=== PATIENT | male | born 1930 | race Caucasian/White ===

== ENCOUNTER 2017-10-27 11:12 | Inpatient (IN) | payer MEDICARE, OTHER ==
[2017-10-27 12:23] LABS: #Basophils 0.1 thou/uL (0.0-0.2); #Lymphocytes 1.4 thou/uL (1.20-3.40); #Monocytes 0.3 thou/uL (0.11-0.59); #Neutrophils 14.2 thou/uL (1.40-6.50); %Basophils 0.4 % (0.0-1.0); %Eosinophils 0.1 % (0.0-10.0); %Lymphocytes 8.7 % (21.0-51.0); %Monocytes 1.8 % (0.0-10.0); %Neutrophils 88.9 % (42.0-75.0); Hemoglobin 13.3 g/dL (14.0-18.0); Mean Corpuscular HGB CONC 30.9 g/dL (32.0-36.0); Mean Corpuscular Hemoglobin 30.2 pg (27.0-31.0); Mean Corpuscular Volume 97.6 fl (80.0-94.0); Mean Platelet Volume 7.3 fL (7.4-10.4); Platelet Count 337 thou/uL (130-400); RBC Distribution Width 14.3 % (11.5-14.5)
[2017-10-27 12:51] LABS: ALT (SGPT) 45 U/L (8-55); AST (SGOT) 26 U/L (5-34); Alkaline Phosphatase 67 U/L (40-150); Anion Gap 16 mmol/L (10-20); BUN (Urea Nitrogen) 21 mg/dL (8.4-25.7); Bilirubin, Total 0.6 mg/dL (0.2-1.2); CK (CPK) 86 U/L (30-200); Calc. Creatinine Clearance 0 mL/min (70-130); Calcium 8.9 mg/dL (7.8-10.44); Carbon Dioxide 25 mmol/L (23-31); Chloride 99 mmol/L (98-107); Estimated GFR-MDRD 61; Globulin 3.6 g/dL (2.4-3.5); Glucose 254 mg/dL (83-110); Lipase 32 U/L (8-78); Potassium 4.9 mmol/L (3.5-5.1); Protein, Total 6.6 g/dL (5.8-8.1); Sodium 135 mmol/L (136-145)
[2017-10-27 12:53] LABS: Troponin I 0.017 ng/mL (< 0.028)
--- NOTE | 2017-10-27 13:00 | CT ---
CT BRAIN WITHOUT CONTRAST: HISTORY: Emergency exam. Confusion. COMPARISON: None. FINDINGS: There is mild atrophy. Ex vacuo dilatation in extraaxial CSF spaces and the ventricles. No hemorrhage. No large-volume infarction. Calvarium is intact. Paranasal sinuses and mastoids are clear. IMPRESSION: Mild atrophy. No acute intracranial abnormality. POS: [facility]
--- NOTE | 2017-10-27 13:27 | RAD ---
PA AND LATERAL OF THE CHEST: INDICATION: History of cough. COMPARISON: Prior exam dated 08/28/16. FINDINGS: There is prominent airspace opacity seen within the region of the right middle lobe and right lower l obe with a small right pleural effusion. Findings in the appropriate clinical setting were consisten t with pneumonia with a peripneumonic effusion. Chronic lung changes appear similar to the compariso n exams. Post-CABG change is similar. Dual-lead pacemaker overlying the left chest wall is similar. No acute osseous abnormality is grossly evident. There is an aorto-endograft stent seen within the upper abdomen. IMPRESSION: Patchy opacities seen within the right lung base with associated right-sided pleural effusion suspici ous for pneumonia with peripneumonic effusion. Recommend radiographic followup to resolution. POS: [facility]
[2017-10-27 13:58] LABS: Bilirubin Negative (Negative); Blood, Urine Negative (Negative); Clarity CLEAR (Clear); Glucose, Urine (Dipstick) >=1000 mg/dL (Negative); Leukocyte Negative (Negative); Nitrite Negative (Negative); Protein, Urine (Dipstick) Negative (Neg-Trace); Specific Gravity, Urine 1.028 (1.002-1.036); Urobilinogen 0.2 mg/dL (0.2-1.0); pH, Urine 5.5 (5.0-9.0)
[2017-10-27] MEDS ORDERED: Azithromycin 500 MG in Sodium Chloride 0.9% 250 ML 250 ML IVPB SCH ×2 (14:00→18:30)
[2017-10-27] MEDS ORDERED: methylPREDNISolone Sod Succ/PF 125 MG/2 ML VIAL ONE (14:21)
[2017-10-27] MEDS ORDERED: Water For Inject, Bacteriostat 30 ML ONE (14:21)
[2017-10-27] MEDS ORDERED: Acetaminophen 325 MG TAB PO PRN ×2 (16:07→17:28)
[2017-10-27 16:13] VITALS: BMI 20.1
[2017-10-27 16:18] LABS: Troponin I 0.026 ng/mL (< 0.028)
[2017-10-27 16:19] LABS: Lactic Acid 1.3 mmol/L (0.5-2.2)
[2017-10-27] MEDS ORDERED: Dextrose 50% Abboject 50 ML SYRINGE SLOW IVP PRN (17:28)
[2017-10-27] MEDS ORDERED: Zolpidem Tartrate 5 MG TAB PO PRN (17:28)
[2017-10-27] MEDS ORDERED: Dextrose 5% in Water 1,000 ML IV PRN (17:28)
[2017-10-27 18:51] LABS: Troponin I 0.026 ng/mL (< 0.028)
[2017-10-27] MEDS: Albuterol Sulfate 2.5 mg/3 ml Neb NEB SCH ×2 (19:57→22:34)
[2017-10-27] MEDS ORDERED: cefTRIAXone\\ROCEPHIN 1 GM in Sodium Chloride 0.9% 100 ML IVPB SCH (20:00)
[2017-10-27] MEDS: Apixaban 5 MG TAB PO SCH (20:25)
[2017-10-27] MEDS: Atorvastatin Calcium 20 MG TAB PO SCH (20:25)
[2017-10-27] MEDS: Azelastine 137 MCG/Spray 30 ML NS SCH (20:25)
[2017-10-27] MEDS ORDERED: Non-Formulary Item 1 EACH (Levocetirizine Dihydrochloride [Levocetirizine Dihydrochloride PO SCH (21:00)
[2017-10-27] MEDS ORDERED: SITAGLIPTIN PHOS PO SCH (21:00)
[2017-10-27] MEDS ORDERED: METFORMIN HCL PO SCH (21:00)
--- NOTE | 2017-10-27 22:32 | HP ---
DATE OF ADMISSION: 10/27/2017 ADMITTING PHYSICIAN: Kyaw Pdero MD HISTORY OF PRESENT ILLNESS: The patient is an 87-year-old male with known history of atherosclerotic coronary artery disease, type 2 diabetes mellitus, history of atrial fibrillation, brought to the em ergency room. Family noticed slight confusion, being unable to find words, slurred speech, shaking t his morning. He seemed to be slightly weakened. Family noticed some tremors to his upper body. He was seen and evaluated in the emergency room and he was found to have a right lower lobe pneumonia wi th elevated white blood count. There have been no reports of fever, productive coughing, previous hi story of nausea, vomiting, or diarrhea. He has recently had a history of hematuria, has been evaluat ed by Urology Service: No etiology of his hematuria was identified. He has also recently had some c hanges to some of his medicines for cardiology treatments. Today right now, he is feeling much javi r since he has had received some IV fluids as well as some IV antibiotics. He has noted been feeling ill for about 5-6 weeks prior to this, has also noted some lower back pain. He states the back pain is now feeling much better as well too. Once again, no productive coughing, no fever has been repor harshad. Family did note, as they said, that he seemed to be a little bit more confused this morning. T hey now noted he seems to be back to his normal mental status at this time. Otherwise, no other medi fran complaints are noted. ALLERGIES: He is allergic to CODEINE, SULFA. CURRENT MEDICATION: Will be updated at a later date. PAST MEDICAL HISTORY: Significant for atherosclerotic coronary artery disease, status post coronary artery bypass graft on 2 separate occasions, most recently approximately 3 years ago in 2013. He is also status post pacemaker placement. Medical history positive for atrial fibrillation, type 2 diabe cass mellitus, hypertension, and benign prostatic hypertrophy. SOCIAL AND PERSONAL HISTORY: He is . He does not smoke nor does he drink alcohol. REVIEW OF SYSTEMS: Genitourinary: Positive for some urinary frequency. Musculoskeletal: Positive for back pain. Cardiovascular: Otherwise, negative. Pulmonary: Positive as above. Neurological: Otherwise negative. PHYSICAL EXAMINATION: VITAL SIGNS: Temperature 98.8, pulse 107 and regular, respirations 18, O2 sat 94% on 2 liters, blood pressure 136/68. GENERAL: He appears to be alert, active, in no distress. HEENT: Normocephalic, atraumatic. Extraocular muscles are intact. Sclerae and conjunctivae clear. NECK: Supple, no masses. LUNGS: Bilateral breath sounds; questions of some very faint rales at the right base. HEART: Reveals and irregular regular rhythm without murmur, gallops or rubs. ABDOMEN: Soft, nontender, bowel sounds are active. No hepatosplenomegaly is noted. EXTREMITIES: No clubbing, edema or cyanosis otherwise noted. NEUROLOGICAL: He is alert and oriented. He is able to move all extremities at this time. LABORATORY AND X-RAY FINDINGS: His white blood count 16,000, hemoglobin 13.3, hematocrit 42.9. Chem istry: Sodium 135, potassium 4.9, chloride 99, CO2 of 25, BUN 29, creatinine 1.13. Lactic acid is s lightly elevated upon admission of 2.4. Troponins x2 are negative. Urinalysis shows some glucose in his urine. Chest x-ray did reveal a faint right lower lobe infiltrate with effusion noted on the ri ght side. IMPRESSION: 1. This is an 87-year-old male with known history of atherosclerotic coronary artery disease who pre sented with altered mental status, most likely this is related to a pneumonic process. He does have a right pleural effusion, which could be associated with his back pain. 2. History of atherosclerotic coronary artery disease. 3. History of type 2 diabetes mellitus. PLAN: 1. The patient will be admitted and begun on IV antibiotics. 2. Sliding scale insulin will be administered. 3. We will consider pulmonary consult; see response in the a.m.
[2017-10-28] MEDS: Insulin Regular 300 UNITS/3 ML VIAL SC PRN ×4 (05:50→21:31)
[2017-10-28 05:55] LABS: Anion Gap 21 mmol/L (10-20); BUN (Urea Nitrogen) 23 mg/dL (8.4-25.7); Calc. Creatinine Clearance 49 mL/min (70-130); Calcium 8.8 mg/dL (7.8-10.44); Carbon Dioxide 22 mmol/L (23-31); Chloride 102 mmol/L (98-107); Estimated GFR-MDRD 65; Glucose 274 mg/dL (83-110); Potassium 4.5 mmol/L (3.5-5.1); Sodium 140 mmol/L (136-145)
[2017-10-28 06:01] LABS: Band 19 % (5-11); Lymphocytes 17 % (21-51); MDiff Complete? YES; Mean Corpuscular HGB CONC 31.8 g/dL (32.0-36.0); Mean Corpuscular Volume 97.5 fl (80.0-94.0); Mean Platelet Volume 7.7 fL (7.4-10.4); Monocytes 2 % (0-10); Neutrophil 62 % (42-75); Platelet Count 329 thou/uL (130-400); RBC Distribution Width 14.4 % (11.5-14.5); Red Blood Cell (RBC) Count 4.19 mill/uL (4.70-6.10); White Blood Cell (WBC) Count 21.3 thou/uL (4.8-10.8)
--- NOTE | 2017-10-28 07:34 | PRG ---
DATE OF SERVICE: 10/28/2017 SUBJECTIVE: Mr. Fernández states he is feeling well. He still noticed some mid back pain, some slight pain with breathing, but overall states he is feeling better. OBJECTIVE: VITAL SIGNS: His temperature 97.5, BP 125/70, and O2 sats 97% on 2-3 liters. LUNGS: Reveal decreased breath sounds right base. No wheezes or rales, otherwise appreciated. HEART: Reveals an irregular regular rhythm without murmurs. LABORATORY DATA: His white blood count is elevated at 21.3, hemoglobin 13.0, hematocrit 40.8. Chemi stry profile is essentially normal otherwise. IMPRESSION: Right lower lobe pneumonia. Continues to be improved clinically. PLAN: The patient will continue current antibiotic regimen, we will make sure nursing staff could se e him up and moves around today.
[2017-10-28] MEDS ORDERED: metFORMIN 500 MG TAB PO SCH ×3 (08:00)
[2017-10-28] MEDS ORDERED: Canagliflozin [Invokana] 1 TAB PO SCH (09:00)
[2017-10-28] MEDS: metFORMIN 500 MG TAB PO SCH ×3 (09:46→16:54)
[2017-10-28] MEDS: Apixaban 5 MG TAB PO SCH ×2 (09:47→21:27)
[2017-10-28] MEDS: Ezetimibe 10 MG TAB PO SCH (09:47)
[2017-10-28] MEDS: Dutasteride 0.5 MG CAP PO SCH (09:47)
[2017-10-28] MEDS: Loratadine 10 MG TAB PO SCH (09:48)
[2017-10-28] MEDS: Allopurinol 300 MG TAB PO SCH (09:48)
[2017-10-28] MEDS: Azelastine 137 MCG/Spray 30 ML NS SCH ×2 (09:49→21:30)
[2017-10-28] MEDS: Alogliptin 6.25 MG TAB PO SCH (09:58)
[2017-10-28] MEDS: Azithromycin 500 MG in Sodium Chloride 0.9% 250 ML 250 ML IVPB SCH (11:45)
[2017-10-28] MEDS: cefTRIAXone\\ROCEPHIN 1 GM, Syringe 0.4 ML in Sterile Water 9.6 ML SLOW IVP SCH (14:30)
[2017-10-28] MEDS: Atorvastatin Calcium 20 MG TAB PO SCH (21:27)
[2017-10-29 06:47] LABS: Hemoglobin 12.2 g/dL (14.0-18.0); Mean Corpuscular HGB CONC 30.4 g/dL (32.0-36.0); Mean Corpuscular Hemoglobin 29.6 pg (27.0-31.0); Mean Corpuscular Volume 97.2 fl (80.0-94.0); Mean Platelet Volume 7.6 fL (7.4-10.4); Platelet Count 371 thou/uL (130-400); RBC Distribution Width 14.5 % (11.5-14.5); Red Blood Cell (RBC) Count 4.11 mill/uL (4.70-6.10); White Blood Cell (WBC) Count 22.1 thou/uL (4.8-10.8)
[2017-10-29] MEDS: metFORMIN 500 MG TAB PO SCH ×3 (08:42→17:52)
[2017-10-29] MEDS: Dutasteride 0.5 MG CAP PO SCH (08:42)
[2017-10-29] MEDS: Alogliptin 6.25 MG TAB PO SCH (08:43)
[2017-10-29] MEDS: Allopurinol 300 MG TAB PO SCH (08:43)
[2017-10-29] MEDS: Apixaban 5 MG TAB PO SCH ×2 (08:43→21:39)
[2017-10-29] MEDS: Ezetimibe 10 MG TAB PO SCH (08:43)
[2017-10-29] MEDS: Loratadine 10 MG TAB PO SCH (08:43)
[2017-10-29] MEDS: Azelastine 137 MCG/Spray 30 ML NS SCH ×2 (08:44→21:39)
--- NOTE | 2017-10-29 08:50 | RAD ---
PA AND LATERAL VIEWS OF CHEST: Date: 10/29/17 HISTORY: Pneumonia follow-up. FINDINGS/IMPRESSION: Comparison made with exam of 10/27/17. Changes of median sternotomy are again seen. Left-sided pacemaker device remains in place. The heart size is normal. Right basilar consolidation with accompanying effusion is again seen. No pneumothorac es are identified. The right-sided pleural effusion is slightly larger than on the previous study. POS: [facility]
[2017-10-29 08:57] LABS: Band 14 % (5-11); Lymphocytes 3 % (21-51); MDiff Complete? YES; Monocytes 6 % (0-10); Myelocyte 1 % (0-0); Neutrophil 76 % (42-75); RBC Morphology Normal
[2017-10-29] MEDS: Azithromycin 500 MG in Sodium Chloride 0.9% 250 ML 250 ML IVPB SCH (12:20)
--- NOTE | 2017-10-29 13:10 | PRG ---
DATE OF SERVICE: 10/29/2017 SUBJECTIVE: Mr. Fernández is resting comfortably in bed. He has no medical complaints except for some pain to his right lower and right mid back area, somewhat worse when he breath. PHYSICAL EXAMINATION: VITAL SIGNS: He is afebrile. Blood pressure 144/55, O2 sat 92% on 3 liters. LUNGS: Reveal bilateral breath sounds, somewhat diminished on the right foot, but no rales or wheeze s are appreciated. HEART: Reveals an irregular regular rhythm. ABDOMEN: Soft, nontender, bowel sounds are active. LABORATORY DATA: His white blood count is 22,000, hemoglobin 12.2, hematocrit 39.9. Microbiology sh ows a gram variable jeremiah with further incubation required. Chest x-ray shows a somewhat larger right pleural effusion when compared to previous x-ray. There is a right basilar consolidation noted, basi joe unchanged. IMPRESSION: 1. Right lower lobe pneumonia with effusion. 2. One blood culture positive. 3. History of atrial fibrillation with pacemaker, currently on Eliquis. PLAN: The patient seems to be improving clinically, although white count is somewhat higher and the effusions are somewhat larger. I will discuss the findings with Pulmonology, consult could be given and the patient has been notified of the above findings. The patient will be cared for this weekend by transportation coordinator physicians. His hospitalization and follow up will be determined by his response.
[2017-10-29] MEDS: cefTRIAXone\\ROCEPHIN 1 GM, Syringe 0.4 ML in Sterile Water 9.6 ML SLOW IVP SCH (14:53)
[2017-10-29] MEDS: Atorvastatin Calcium 20 MG TAB PO SCH (21:39)
[2017-10-30] MEDS: Insulin Regular 300 UNITS/3 ML VIAL SC PRN ×2 (06:17→18:35)
[2017-10-30 06:42] LABS: #Lymphocytes 1.5 thou/uL (1.20-3.40); #Monocytes 1.2 thou/uL (0.11-0.59); #Neutrophils 16.6 thou/uL (1.40-6.50); %Basophils 0.1 % (0.0-1.0); %Eosinophils 0.2 % (0.0-10.0); %Lymphocytes 7.9 % (21.0-51.0); %Monocytes 6.3 % (0.0-10.0); %Neutrophils 85.5 % (42.0-75.0); Mean Corpuscular Hemoglobin 29.8 pg (27.0-31.0); Mean Corpuscular Volume 96.3 fl (80.0-94.0); Mean Platelet Volume 7.7 fL (7.4-10.4); Platelet Count 335 thou/uL (130-400); RBC Distribution Width 14.4 % (11.5-14.5); Red Blood Cell (RBC) Count 4.01 mill/uL (4.70-6.10); White Blood Cell (WBC) Count 19.5 thou/uL (4.8-10.8)
[2017-10-30] MEDS: Alogliptin 6.25 MG TAB PO SCH (09:16)
[2017-10-30] MEDS: Allopurinol 300 MG TAB PO SCH (09:17)
[2017-10-30] MEDS: Apixaban 5 MG TAB PO SCH ×2 (09:17→21:11)
[2017-10-30] MEDS: metFORMIN 500 MG TAB PO SCH ×3 (09:17→18:34)
[2017-10-30] MEDS: Ezetimibe 10 MG TAB PO SCH (09:17)
[2017-10-30] MEDS: Dutasteride 0.5 MG CAP PO SCH (09:18)
[2017-10-30] MEDS: predniSONE 20 MG TAB PO SCH (09:18)
[2017-10-30] MEDS: Loratadine 10 MG TAB PO SCH (09:18)
[2017-10-30] MEDS: Azelastine 137 MCG/Spray 30 ML NS SCH ×2 (09:18→21:12)
[2017-10-30] MEDS ORDERED: Insulin Regular 300 UNITS/3 ML VIAL SC PRN (11:05)
--- NOTE | 2017-10-30 11:31 | PRG ---
DATE OF SERVICE: 10/30/2017 PRIMARY CARE PHYSICIAN: Dr. Kyaw Pedro. SUBJECTIVE: The patient is feeling some better. He continues to have right-sided lower chest wall p ain, worse with inspiration and changes of position, improved cough, improved shortness of breath. H e is ambulating in the hallway and sitting up in chair without difficulty. Still requiring oxygen. OBJECTIVE: VITAL SIGNS: Temperature 98.4, pulse of 98, respirations 16, blood pressure 112/61, pulse ox is 95% on 3 liters, 85% on room air. GENERAL: He is awake and alert, in no acute distress. Speech is clear. No conversational dyspnea. NECK: Supple. CARDIOVASCULAR: Irregularly irregular. LUNGS: With decreased breath sounds in the right base. No wheeze, rales, or rhonchi. ABDOMEN: Soft. EXTREMITIES: With no edema. LABORATORY DATA: White blood cell count down to 19,500 with 85.5% neutrophils, 7.9% lymphocytes, no bandemia. This is down from 22,100 white blood cells yesterday, hemoglobin and hematocrit 12.0 and 3 8.6, platelets of 335. Accu-Cheks of 229, 206, 176, 194. Blood culture 1 of 2 is still growing gram -variable rods. Chest x-ray from yesterday reveals increased pleural effusion on the right. ASSESSMENT AND PLAN: This is an 87-year-old gentleman with a history of coronary artery disease, chr onic atrial fibrillation, admitted with right lower lobe pneumonia with effusion and now with increas ed effusion. He was started on steroids today per Pulmonary and has had minimal improvement since . 1. Pneumonia. We will continue antibiotics. 2. White blood cell count is starting to decline. 3. Increased pleural effusion. We will recheck chest x-ray in the morning and have Pulmonary evalua te the patient. 3. Hypoxemia. I will make arrangements for home oxygen. 4. Chronic atrial fibrillation. We will continue anticoagulation.
[2017-10-30] MEDS: Azithromycin 500 MG in Sodium Chloride 0.9% 250 ML 250 ML IVPB SCH (12:03)
[2017-10-30] MEDS: cefTRIAXone\\ROCEPHIN 1 GM, Syringe 0.4 ML in Sterile Water 9.6 ML SLOW IVP SCH (15:30)
[2017-10-30] MEDS: Atorvastatin Calcium 20 MG TAB PO SCH (21:11)
[2017-10-31 05:16] LABS: #Lymphocytes 1.1 thou/uL (1.20-3.40); #Monocytes 1.4 thou/uL (0.11-0.59); #Neutrophils 17.3 thou/uL (1.40-6.50); %Basophils 0.1 % (0.0-1.0); %Eosinophils 0.2 % (0.0-10.0); %Lymphocytes 5.5 % (21.0-51.0); %Monocytes 6.8 % (0.0-10.0); %Neutrophils 87.4 % (42.0-75.0); Hemoglobin 13.1 g/dL (14.0-18.0); Mean Corpuscular HGB CONC 31.9 g/dL (32.0-36.0); Mean Corpuscular Hemoglobin 31.1 pg (27.0-31.0); Mean Corpuscular Volume 97.5 fl (80.0-94.0); Mean Platelet Volume 7.9 fL (7.4-10.4); Platelet Count 356 thou/uL (130-400); RBC Distribution Width 14.4 % (11.5-14.5); Red Blood Cell (RBC) Count 4.21 mill/uL (4.70-6.10); White Blood Cell (WBC) Count 19.8 thou/uL (4.8-10.8)
[2017-10-31] MEDS: Insulin Regular 300 UNITS/3 ML VIAL SC PRN ×2 (07:04→19:15)
[2017-10-31] MEDS: metFORMIN 500 MG TAB PO SCH ×2 (08:41→17:35)
[2017-10-31] MEDS: Allopurinol 300 MG TAB PO SCH (08:41)
[2017-10-31] MEDS: predniSONE 20 MG TAB PO SCH (08:41)
[2017-10-31] MEDS: Ezetimibe 10 MG TAB PO SCH (08:41)
[2017-10-31] MEDS: Alogliptin 6.25 MG TAB PO SCH (08:41)
[2017-10-31] MEDS: Dutasteride 0.5 MG CAP PO SCH (08:41)
[2017-10-31] MEDS: Apixaban 5 MG TAB PO SCH (08:41)
[2017-10-31] MEDS: Azelastine 137 MCG/Spray 30 ML NS SCH ×2 (08:42→20:18)
[2017-10-31] MEDS: Loratadine 10 MG TAB PO SCH (08:42)
--- NOTE | 2017-10-31 09:56 | PRG ---
DATE OF SERVICE: 10/31/2017 SUBJECTIVE: The patient states that he is feeling better. He has decreased pain in his right chest with inspiration. He states that he is moving around in the room, able to go to the bathroom with his walker. Nursing reports that his pulse ox is worsened. He drops down to 70%-80% with ambulation, still requiring oxygen. OBJECTIVE: VITAL SIGNS: Temperature 98.9, pulse of 96, respirations 14-16, pulse oximetry is 95% on 3 liters, blood pressure 135/77. GENERAL: He is awake and alert. He has some conversational dyspnea, reported dyspnea on exertion. HEENT: Mucosa is moist. NECK: Supple. HEART: Regular rate and rhythm. LUNGS: With decreased breath sounds on the right side. No wheezes. ABDOMEN: Soft. EXTREMITIES: With no edema. LABORATORY DATA: White blood cell count 19,800, yesterday was 19,500, hemoglobin and hematocrit 13.1 and 41.1, platelets of 356. Accu-Cheks 224, 277 , 233. Chest x-ray, awaiting final report, but appears to have worsening infiltrate on the right side. ASSESSMENT AND PLAN: This is an 87-year-old gentleman admitted with pneumonia and persistent right pleural effusion, now with worsening symptoms, hypoxemia. 1. Right-sided pneumonia, possible aspiration component. We will continue Rocephin and start vancomycin. We will discontinue Zithromax. Await further recommendations per pulmonary. 2. Leukocytosis. Again, we will change antibiotics as above. 3. Increased pleural effusion. Dr. Campuzano to evaluate. 4. Chronic atrial fibrillation. We will continue anticoagulation. 5. Type 2 diabetes, worsened likely due to the steroid therapy. I will start Lantus for basal insulin while he is taking steroid therapy. MTDD
[2017-10-31] MEDS ORDERED: Insulin Detemir 100 UNITS/ML 10 UNITS in Pre-Filled Syringe 1 EACH SC SCH (10:15)
--- NOTE | 2017-10-31 10:48 | RAD ---
AP VIEW CHEST: Date: 10/31/17 HISTORY: pleural effusion. FINDINGS: Comparison made to previous exam from 10/29/17. Two AP views of chest demonstrate sternotomy wires seen. A dual lead intracardiac pacing device is se en. There is a moderate to large right-sided pleural effusion, which is stable. Some prominent inters titial markings seen in the right lung, as well as in the left lung base. No significant interval odalis nge is seen since the previous exam from 2 days earlier. IMPRESSION: Moderate to large right-sided pleural effusion. POS: [facility]
[2017-10-31] MEDS ORDERED: Vancomycin HCl 1 GM in Premix Bag 1 BAG IVPB SCH (11:00)
--- NOTE | 2017-10-31 14:51 | RAD ---
AP VIEW CHEST: Date: 10/31/17 HISTORY: Status post thoracentesis. FINDINGS: Comparison made to previous exam from earlier in the day. AP view of chest demonstrates sternotomy wires seen. The left lung is well aerated. There has been in terval right-sided thoracentesis. The volume of the right thoracic fluid collection has decreased com pared to the previous exam. No evidence of post thoracentesis pneumothorax seen. IMPRESSION: Status post right-sided thoracentesis. Some fluid remains in the right hemithorax. No evidence of pos tprocedure pneumothorax seen. POS: [facility]
[2017-10-31] MEDS: cefTRIAXone\\ROCEPHIN 1 GM, Syringe 0.4 ML in Sterile Water 9.6 ML SLOW IVP SCH (14:58)
[2017-10-31 16:27] LABS: BF Color Red; Body Fluid Source PLEURAL FLUID; Clarity Cloudy/Turbid (Clear); RBC Count-Automated 118000 /cumm; Tube # EDTA; WBC/NonHematic-Auto 12800 /cumm
[2017-10-31 16:41] LABS: Pleural Fluid, Protein 3.8 g/dL
[2017-10-31 17:03] LABS: BF Segmented Neutrophils 71 %; Cell Count Non Hematic 22 %; Lymphocytes 7 %
[2017-10-31] MEDS: Atorvastatin Calcium 20 MG TAB PO SCH (20:18)
--- NOTE | 2017-10-31 22:02 | CON ---
DATE OF CONSULTATION: 10/31/2017 REASON FOR CONSULTATION: Evaluation for right tube thoracostomy. PERTINENT HISTORY: Patient is an 87-year-old male admitted 5 days ago with generalized weakness and mental status changes. White blood cell count was elevated at 16.0 with chest x-ray suggestive of a right-sided pneumonia and associated small right pleural effusion. Symptomatic improvement has been seen with intravenous fluids and intravenous antibiotics. White blood cell count peaked at 22.1. Serial chest x-rays, however, had shown marked increase in the right pleural effusion. Thoracentesis was performed today by Dr. Campuzano retrieving approximately 1 liter of bloody fluid, which was also turbid and had a low pH. Post-thoracentesis chest x-ray revealed moderate remaining pleural fluid. The patient was subsequently referred for right tube thoracostomy. PAST MEDICAL HISTORY: 1. Coronary artery disease. 2. Infrarenal abdominal aortic aneurysm. 3. Dyslipidemia. 4. Hypertension. 5. Diabetes. 6. Benign prostatic hypertrophy. 7. Chronic atrial fibrillation on Eliquis. PAST SURGICAL HISTORY: 1. Appendectomy. 2. Permanent pacemaker insertion. 3. Coronary artery bypass grafting x4 in 2013. 4. Endovascular repair of infrarenal abdominal aortic aneurysm 2015. ALLERGIES: CODEINE, SULFA. SOCIAL HISTORY: Non-smoker. Occasional alcohol use. FAMILY HISTORY: Significant for his father undergone coronary artery bypass in his 90s. REVIEW OF SYSTEMS: No history of stroke or claudication. He has had evidence of prior renal insufficiency in the past; however, current creatinine is 1.07. LABORATORY DATA AND X-RAY FINDINGS: Current white blood cell count 19.8, hemoglobin 13.1, platelet count 356,000. CURRENT MEDICATIONS: Allopurinol, alogliptin, Lipitor, azelastine, IV ceftriaxone, Avodart, Zetia, detemir insulin, loratadine, metformin, Altace, prednisone, intravenous vancomycin. Eliquis was stopped today. PHYSICAL EXAMINATION: VITAL SIGNS: Height 6 feet 0 inches. Weight 161 pounds, blood pressure 133/77 , heart rate 96, temperature 98.9. GENERAL: Elderly, somewhat thin male, currently in no acute distress. He is fully oriented. He is wearing supplemental oxygen. HEENT: Grossly unremarkable. NECK: Without JVD or adenopathy. LUNGS: With diminished breath sounds on the right. HEART: Irregularly irregular rhythm consistent with his chronic atrial fibrillation. No murmur. ABDOMEN: Soft and nontender without palpable mass. EXTREMITIES: Without edema. VASCULAR: Palpable radial, femoral, and popliteal pulses bilaterally. No carotid bruits were appreciated. NEUROLOGIC: No focal deficits. IMPRESSION: Right parapneumonic effusion. RECOMMENDATIONS: Right tube thoracostomy (chest tube) to which the patient is in agreement following discussion with his referring lamp shade assembler and myself. Indications, benefits, alternatives, and risks were explained in detail to the patient. All questions were answered. The case will be scheduled in the OR on Wednesday using light sedation. YONAS
--- NOTE | 2017-11-01 03:13 | OP ---
DATE OF PROCEDURE: 10/31/2017 PROCEDURE: Thoracentesis. PROJECT MANAGER INDUSTRIAL: Olaf Campuzano M.D. INDICATION: Increasing pleural effusion on the right. PROCEDURE IN DETAIL: The patient was prepped in a sterile fashion using chlorhexidine. His right po sterior hemithorax was anesthetized with 1% lidocaine, approximately 8 mL. Pleural fluid was localiz ed with a 22 gauge needle. An 8 Slovak catheter was inserted in the pleural space after a small inci rohan with a #11 blade. Approximately 1 liter of serosanguineous pleural fluid was evacuated into a Pleur-Evac. No air was a spirated. There was no clinical indication of a pneumothorax. PH was 7.18. Protein was 3.8. LDH was 1237. Glucose was 203. There were 118,000 red cells, 16629 white cells, most of which were neutrophils (7 1%). IMPRESSION: Parapneumonic effusion with an LDH over 1000 and a pH of less than 7.2, this would argue for a chest tube placement. It is currently free flowing fluid. He is anticoagulated. I have stopped his anticoagulants. It is reasonable to do a swallow evaluation per Speech Pathology. Initially I canceled it, thought he john paul ht be having a chest tube placed tomorrow, but anticoagulants will be held for at least 24 hours and then perhaps on Wednesday he will have a chest tube placed.
[2017-11-01 05:45] LABS: Anion Gap 11 mmol/L (10-20); BUN (Urea Nitrogen) 38 mg/dL (8.4-25.7); Calc. Creatinine Clearance 55 mL/min (70-130); Calcium 8.5 mg/dL (7.8-10.44); Carbon Dioxide 28 mmol/L (23-31); Chloride 99 mmol/L (98-107); Estimated GFR-MDRD 74; Glucose 201 mg/dL (83-110); Potassium 4.4 mmol/L (3.5-5.1); Sodium 134 mmol/L (136-145)
[2017-11-01 07:02] LABS: Band 10 % (5-11); Hemoglobin 11.4 g/dL (14.0-18.0); Lymphocytes 7 % (21-51); MDiff Complete? YES; Mean Corpuscular HGB CONC 30.5 g/dL (32.0-36.0); Mean Corpuscular Hemoglobin 29.4 pg (27.0-31.0); Mean Corpuscular Volume 96.4 fl (80.0-94.0); Mean Platelet Volume 7.9 fL (7.4-10.4); Monocytes 4 % (0-10); Neutrophil 79 % (42-75); Platelet Count 347 thou/uL (130-400); RBC Distribution Width 14.2 % (11.5-14.5); Red Blood Cell (RBC) Count 3.87 mill/uL (4.70-6.10); White Blood Cell (WBC) Count 16.4 thou/uL (4.8-10.8)
[2017-11-01] MEDS: Alogliptin 6.25 MG TAB PO SCH (07:47)
[2017-11-01] MEDS: Allopurinol 300 MG TAB PO SCH (07:47)
[2017-11-01] MEDS: metFORMIN 500 MG TAB PO SCH ×2 (07:47→17:09)
[2017-11-01] MEDS: Ezetimibe 10 MG TAB PO SCH (07:47)
[2017-11-01] MEDS: Loratadine 10 MG TAB PO SCH (07:48)
[2017-11-01] MEDS: Dutasteride 0.5 MG CAP PO SCH (07:48)
[2017-11-01] MEDS: predniSONE 20 MG TAB PO SCH (07:48)
[2017-11-01] MEDS: Azelastine 137 MCG/Spray 30 ML NS SCH ×2 (07:49→21:23)
[2017-11-01] MEDS ORDERED: Insulin Detemir 100 UNITS/ML 10 UNITS in Pre-Filled Syringe 1 EACH SC SCH (09:00)
--- NOTE | 2017-11-01 10:41 | CON ---
DATE OF DICTATION: 10/31/2017 HISTORY OF PRESENT ILLNESS: Mr. Fernández is a pleasant 87-year-old male. 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 History of vascular disease. He says he recently had a heart checkup with Dr. Ignacio and zorathisruthi danilo was fine. He presented with some confusion and shortness of breath as well as a cough. Clinically, he has improved dramatically per his and his daughter, but his chest radiograph show ed progressively increasing pleural effusions, so I was consulted. PAST MEDICAL HISTORY: Remarkable for; 1. Atherosclerotic vascular disease. 2. Coronary bypass grafting. 3. History of pacemaker. 4. History of atrial fibrillation. 5. Diabetes. 6. Hypertension. 7. BPH. SOCIAL HISTORY: He is a non-smoker, nondrinker. He does not use drugs. He is , has a very s upportive family, now with and 1 daughter. Answered all their questions. REVIEW OF SYSTEMS: Ten point review of systems otherwise negative except for the above. Stated he f elt great yesterday and slept great last night, but this morning when he got up, he started feeling p oorly and he started getting short of breath moving around the room. PHYSICAL EXAMINATION: VITAL SIGNS: He is afebrile, heart rate is 97, respiratory rate 16, oximetry is 96 on 3 liters, bloo d pressure 135/77. HEENT: Pupils were equal. Sclerae is anicteric. Extraocular movements full. NECK: Supple. He has no cervical lymphadenopathy. LUNGS: Remarkable for decreased breath sounds at his right base and dullness residential up. HEART: Regular rhythm, no S3. There is grade 2/6 systolic murmur. ABDOMEN: Soft and nontender. EXTREMITIES: Without clubbing, cyanosis, or edema. LABORATORY DATA: White count 19.8, hemoglobin 13.1, platelets 356. Sodium 135, potassium 4.9, chloride 99, bicarbonate 25, BUN 21, creatinine 1.13, glucose 254. CHEST RADIOGRAPHS: On 10/27/2017, 10/29/2017, and this morning have been reviewed. There is gradual ly increasing right effusion. IMPRESSION: Probable parapneumonic effusion. Given that he has had a recent "good heart checkup", I doubt there has been significant decline in his left ventricular systolic function. I recommended a thoracentesis. Risks of bleeding, infection, lung collapse were explained to the pat ient. He agreed to proceed. This is 70-minute consultation including a greater than 50% of this time was spent reviewing records, coordinating care with the staff, and meeting with family and answering all their questions.
--- NOTE | 2017-11-01 10:59 | RAD ---
AP VIEW CHEST: Date: 11/01/17 HISTORY: Pleural effusion. FINDINGS: Comparison made to previous exam from 10/31/17. AP view of chest demonstrates sternotomy wires. Intracardiac pacing device is seen. There continues t o be a right-sided pleural effusion, unchanged since the previous exam. No evidence of pneumothorax s een. The left lung is well aerated. IMPRESSION: Persistent right-sided pleural effusion, unchanged since the previous exam. No evidence of right-side d pneumothorax seen. POS: [facility]
--- NOTE | 2017-11-01 11:54 | RAD ---
BARIUM SWALLOW: Date: 11/01/17 HISTORY: Pneumonia. Swallowing difficulties. 87-year-old male. RADIATION DOSIMETRY: 3.2 minutes of fluoroscopy. DAP 1.69 Gy*cm^2. TECHNIQUE: Varying consistencies of barium were given to the patient. The patient had persistent vallecular pool ing with all consistencies. FINDINGS: There is minimal sound aspiration with dribbling of the pooled barium from the vallecula past the epi glottis into the airway. No evidence of obvious aspiration seen during the swallowing maneuvers. IMPRESSION: Persistent vallecular pooling with minimal spillage and aspiration. POS: [facility]
[2017-11-01] MEDS ORDERED: Clopidogrel Bisulfate 75 MG TAB ONE (15:12)
--- NOTE | 2017-11-01 15:59 | PRG ---
DATE OF SERVICE: 11/01/2017 SUBJECTIVE: He is sitting up in a chair. He is in no distress. PHYSICAL EXAMINATION: VITAL SIGNS: Temperature 97.4, pulse 102, respirations 16, blood pressure 115/55. HEENT: Unremarkable. NECK: No JVD. CHEST: Clear except in the right base where he has diminished breath sounds. CARDIAC: S1 and S2 regular. ABDOMEN: Soft. EXTREMITIES: No edema. LABORATORY DATA: White blood cell count 16, hematocrit 37.4, platelet count 347. Sodium 134, potass ium 4.4, chloride 99, CO2 28, BUN 38, creatinine 0.9, glucose 201. ASSESSMENT: 1. Pneumonia. 2. Right-sided parapneumonic pleural effusion. PLAN: Chest tube placement tomorrow. Continue antibiotics.
[2017-11-01] MEDS: cefTRIAXone\\ROCEPHIN 1 GM, Syringe 0.4 ML in Sterile Water 9.6 ML SLOW IVP SCH (16:12)
[2017-11-01] MEDS: Atorvastatin Calcium 20 MG TAB PO SCH (21:22)
[2017-11-02 06:06] LABS: #Eosinphils 0.1 thou/uL (0.0-0.7); #Lymphocytes 1.2 thou/uL (1.20-3.40); #Neutrophils 12.8 thou/uL (1.40-6.50); %Basophils 0.1 % (0.0-1.0); %Eosinophils 0.5 % (0.0-10.0); %Lymphocytes 7.7 % (21.0-51.0); %Monocytes 6.5 % (0.0-10.0); %Neutrophils 85.2 % (42.0-75.0); Hemoglobin 11.9 g/dL (14.0-18.0); Mean Corpuscular HGB CONC 31.3 g/dL (32.0-36.0); Mean Corpuscular Hemoglobin 30.4 pg (27.0-31.0); Mean Corpuscular Volume 97.3 fl (80.0-94.0); Mean Platelet Volume 7.8 fL (7.4-10.4); Platelet Count 354 thou/uL (130-400); RBC Distribution Width 14.4 % (11.5-14.5)
[2017-11-02 06:25] LABS: Anion Gap 11 mmol/L (10-20); BUN (Urea Nitrogen) 30 mg/dL (8.4-25.7); Calc. Creatinine Clearance 62 mL/min (70-130); Calcium 8.9 mg/dL (7.8-10.44); Carbon Dioxide 30 mmol/L (23-31); Chloride 97 mmol/L (98-107); Estimated GFR-MDRD 85; Glucose 188 mg/dL (83-110); Potassium 4.2 mmol/L (3.5-5.1); Sodium 134 mmol/L (136-145)
[2017-11-02] MEDS ORDERED: Lidocaine 1% (PF) 30 ML VIAL ONE (08:36)
[2017-11-02] MEDS ORDERED: Fentanyl 100 MCG/2 ML VIAL ONE ×2 (10:33→11:39)
[2017-11-02] MEDS ORDERED: Promethazine HCl 25 MG/ML VIAL SLOW IVP PRN (10:51)
[2017-11-02] MEDS ORDERED: Promethazine HCl 25 MG/ML VIAL IM PRN (10:51)
[2017-11-02] MEDS ORDERED: Ondansetron HCl/PF 4 MG/2 ML Vial IVP PRN (10:51)
[2017-11-02] MEDS: predniSONE 20 MG TAB PO SCH (11:26)
[2017-11-02] MEDS: metFORMIN 500 MG TAB PO SCH ×2 (11:26→17:49)
[2017-11-02] MEDS: Alogliptin 6.25 MG TAB PO SCH (11:27)
[2017-11-02] MEDS: Ezetimibe 10 MG TAB PO SCH (11:27)
[2017-11-02] MEDS: Dutasteride 0.5 MG CAP PO SCH (11:27)
[2017-11-02] MEDS: Allopurinol 300 MG TAB PO SCH (11:27)
[2017-11-02] MEDS: Azelastine 137 MCG/Spray 30 ML NS SCH ×2 (11:27→21:17)
[2017-11-02] MEDS: Loratadine 10 MG TAB PO SCH (11:28)
[2017-11-02] MEDS: Insulin Detemir 100 UNITS/ML 15 UNITS in Pre-Filled Syringe 1 EACH SC SCH (11:28)
--- NOTE | 2017-11-02 11:33 | RAD ---
PORTABLE CHEST 1 VIEW: Date: 11/02/17 Time: 1107 hours HISTORY: Chest tube placement. Pleural effusion. FINDINGS/IMPRESSION: Comparison made with exam from previous day. A right-sided chest tube has been placed with tip in the projection of the right lung apex. There has been interval improvement in the size of the pleural effusion. A residual opacity is seen in the rig ht lower lobe. No definite pneumothorax is seen. Changes of median sternotomy are again noted. The he art size is stable. Left-sided pacemaker device remains in place. The left lung is clear. POS: [facility]
--- NOTE | 2017-11-02 12:12 | OP ---
DATE OF PROCEDURE: 11/02/2017 PREPROCEDURE DIAGNOSIS: Right parapneumonic effusion. SURGEON: Hema Toribio M.D. CLOTH PIECER: None. OPERATIVE DIAGNOSIS: Right parapneumonic effusion. SPONGE AND NEEDLE COUNTS: Correct. ANESTHESIA: IV sedation and local at tube insertion site. FINDINGS AT OPERATION: Approximately 600 mL of serosanguineous fluid. DESCRIPTION OF OPERATION: The patient was taken to the operating room. Intravenous sedation was achieved. The patient was prepped and draped in usual sterile fashion. At the proposed tube insertion site, local anesthesia was achieved with 1% Xylocaine. A small stab wound was made. Pleural cavity was entered without difficulty. A 36 Swedish straight chest tube was positioned to the apex as confirmed on intraoperative chest x-ray. Tube was connected to pleurovac suction. This did retrieve approximately 600 mL of serosanguineous fluid. Tube was secured to the skin with silk sutures. Dressing was applied. The patient was taken to the recovery room in stable condition. BLOOD LOSS: None. MTDD
[2017-11-02] MEDS ORDERED: HYDROcodone/Acetaminophen 5/325 mg Tablet PO PRN (12:52)
[2017-11-02] MEDS ORDERED: traMADol HCl 50 MG TAB PO PRN ×2 (12:53)
[2017-11-02] MEDS ORDERED: Ketorolac Tromethamine 30 MG/ML VIAL IVP PRN (12:54)
[2017-11-02] MEDS: cefTRIAXone\\ROCEPHIN 1 GM, Syringe 0.4 ML in Sterile Water 9.6 ML SLOW IVP SCH (14:05)
[2017-11-02] MEDS: HYDROcodone/Acetaminophen 5/325 mg Tablet PO PRN ×2 (15:43→21:18)
--- NOTE | 2017-11-02 16:34 | PQF ---
CLINICAL DOCUMENTATION IMPROVEMENT CLARIFICATION FORM: ICD-10 Updated PLEASE DO AN ADDENDUM TO THE PROGRESS NOTE WITH ANY DOCUMENTATION UPDATES OR ADDITIONS AND CARRY THROUGH TO DC SUMMARY. THANK YOU. DATE: 11/02/17 ATTN: Dr. Zacarias Caceres Please exercise your independent, professional judgment in responding to the clarification form. Clinical indicators are provided on the bottom of this form for your review Please check appropriate box(s): [ ] Acute Respiratory Failure: [ ] with Hypoxia [ ] with Hypercapnia [ ] Acute On Chronic Respiratory Failure: [ ] with Hypoxia [ ] with Hypercapnia [ ] Acute Respiratory Failure due to: (etiology) [ ] Chronic Respiratory Failure only [ ] with Hypoxia [ ] with Hypercapnia [ ] Other diagnosis [ ] Unable to determine In addition, please specify: Present on Admission (POA): [ ] Yes [ ] No [ ] Unable to determine For continuity of documentation, please document condition throughout progress notes and discharge summary. Thank You. CLINICAL INDICATORS - SIGNS / SYMPTOMS / LABS ER RECORD: BP 153/63, P 93, TEMP. 99.4, RESP. 24, O2 SAT 94 ON 2L OXYGEN H&P: WBC 16 LACTIC ACID 2.4 PRESENTED W/ ALTERED MENTAL STATUS, MOST LIKELY R/T A PNEUMONIC PROCESS. PN 10/29: O2 SAT 92 % ON 3L R LL PNEUMONIA W/ EFFUSION PULMONOLOGY PN 10/30: PULSE OX IS 95% ON 3 LITERS. 85% ON RA HYPOXEMIA. I WILL MAKE ARRANGEMENTS FOR HOME OXYGEN. RISKS: H&P: R PLEURAL EFFUSION PN 10/30: PNEUMONIA; INCREASED PLEURAL EFFUSION. HYPOXEMIA. TREATMENT: CPOE 10/27: DUONEB Q6 HR ORDER 10/27: ROCEPHIN 1 GM Thank you, Talya (This form is maintained as a part of the permanent medical record) 2015 [employer]. All Rights Reserved Talya Joshi RN, BSN [email or web address] Office: [phone] [facility]
--- NOTE | 2017-11-02 16:55 | PRG ---
DATE OF SERVICE: 11/02/2017 SUBJECTIVE: An 87-year-old gentleman status post right pleural drainage of 400 mL of serosanguineous fluid. X-ray still shows a persistent right lower lobe density, awaiting cultures and cytology. He is having some pain but no shortness of breath. PHYSICAL EXAMINATION: VITAL SIGNS: Pulse is 90, blood pressure 140/80, respirations 20, sats 95%. CHEST: Decreased breath sounds, no wheezing. HEART: Normal, S1, S2, no gallops. ABDOMEN: Soft, no masses. IMPRESSION: Right pleural effusion, parapneumonic, status post CT drainage. PLAN: Await culture, cytology. Continue antibiotics, supportive care. We will follow.
[2017-11-02] MEDS ORDERED: Propofol 200 MG/20 ML VIAL ONE (17:26)
[2017-11-02] MEDS: Atorvastatin Calcium 20 MG TAB PO SCH (21:21)
[2017-11-03] MEDS: Insulin Regular 300 UNITS/3 ML VIAL SC PRN ×2 (04:47→17:39)
[2017-11-03] MEDS: HYDROcodone/Acetaminophen 5/325 mg Tablet PO PRN ×3 (05:23→21:35)
[2017-11-03] MEDS: metFORMIN 500 MG TAB PO SCH ×2 (08:47→17:38)
[2017-11-03] MEDS: predniSONE 20 MG TAB PO SCH (08:51)
[2017-11-03] MEDS: Loratadine 10 MG TAB PO SCH (08:51)
[2017-11-03] MEDS: Alogliptin 6.25 MG TAB PO SCH (08:51)
[2017-11-03] MEDS: Ezetimibe 10 MG TAB PO SCH (08:53)
[2017-11-03] MEDS: Allopurinol 300 MG TAB PO SCH (08:53)
[2017-11-03] MEDS: Azelastine 137 MCG/Spray 30 ML NS SCH ×2 (08:54→21:35)
[2017-11-03] MEDS: Dutasteride 0.5 MG CAP PO SCH (08:55)
[2017-11-03] MEDS: Insulin Detemir 100 UNITS/ML 15 UNITS in Pre-Filled Syringe 1 EACH SC SCH (08:55)
--- NOTE | 2017-11-03 08:57 | RAD ---
CHEST ONE VIEW: History: Chest pain. Surgery. Follow up. Comparison: 11-02-17 FINDINGS: Cardiac silhouette is magnified by projection. Pulmonary vasculature is upper limits of normal. Media stinum is midline with post-operative changes, aortic calcification, and a dual-lead left subclavian cardiac electronic device. Right thoracostomy tube remains in good radiographic position. Right pleural fluid and basilar atelec tasis/scarring are similar in appearance to the previous exam. No significant pneumothorax is apparen t on this portable upright exam. IMPRESSION: 1. Stable post-operative appearance of the chest. POS: [facility]
--- NOTE | 2017-11-03 10:38 | PRG ---
DATE OF SERVICE: 11/03/2017 SUBJECTIVE: Pradeep is status post chest tube. All cultures are so far negative. His blood is growi ng corynebacterium, which is probably a contamination. Pain is less. PHYSICAL EXAMINATION: VITAL SIGNS: Blood pressure 110/65, temperature 99, respirations 18. CHEST: Decreased breath sounds without any wheezing. CARDIAC: Normal S1-S2. No gallops. IMPRESSION: Status post right chest tube, pleural effusion. PLAN: Continue ceftriaxone, prednisone, neb treatments and PT. Await for culture cytology. We will follow.
[2017-11-03] MEDS: cefTRIAXone\\ROCEPHIN 1 GM, Syringe 0.4 ML in Sterile Water 9.6 ML SLOW IVP SCH (13:47)
[2017-11-03] MEDS: Atorvastatin Calcium 20 MG TAB PO SCH (21:31)
[2017-11-04] MEDS: Insulin Regular 300 UNITS/3 ML VIAL SC PRN (06:30)
[2017-11-04] MEDS: Azelastine 137 MCG/Spray 30 ML NS SCH ×2 (07:53→22:00)
[2017-11-04] MEDS: metFORMIN 500 MG TAB PO SCH ×2 (07:54→16:49)
[2017-11-04] MEDS: predniSONE 20 MG TAB PO SCH (07:55)
[2017-11-04] MEDS: Allopurinol 300 MG TAB PO SCH (07:55)
[2017-11-04] MEDS: Alogliptin 6.25 MG TAB PO SCH (07:56)
[2017-11-04] MEDS: Loratadine 10 MG TAB PO SCH (07:56)
[2017-11-04] MEDS: Ezetimibe 10 MG TAB PO SCH (07:56)
[2017-11-04] MEDS: Insulin Detemir 100 UNITS/ML 15 UNITS in Pre-Filled Syringe 1 EACH SC SCH (07:58)
[2017-11-04] MEDS: Dutasteride 0.5 MG CAP PO SCH (08:58)
--- NOTE | 2017-11-04 10:47 | PRG ---
DATE OF SERVICE: 11/04/2017 SUBJECTIVE: Pradeep is still complaining of chest tube pain. Drainage from the last 24 hours was aliyah arently only 75 mL. This morning, it was 25 mL. OBJECTIVE: VITAL SIGNS: He is afebrile, blood pressure 101/60, sats 99%. CHEST: Decreased breath sounds. CARDIAC: Normal S1, S2. No gallops. ABDOMEN: No masses. IMPRESSION: 1. Right-sided parapneumonic effusion, status post chest tube. 2. Cytology is negative. 3. Pneumonia. PLAN: Probably CT can be removed as per Surgery. Continue antibiotics and supportive care. We will follow.
--- NOTE | 2017-11-04 10:58 | RAD ---
AP CHEST: Indication: Effusion. Comparison: 11-03-17 at 8:20 a.m. FINDINGS: Right sided pleural parenchymal opacities are similar. No pneumothorax is evident. Right sided chest tube is similar. Sternotomy changes are similar. Dual-lead pacemaker overlying left chest wall is sim ilar. IMPRESSION: 1. Persistent right sided pleural effusion and right suspected basilar atelectasis. Continued follow up is recommended. 2. No pneumothorax is demonstrated. 3. Stable right sided chest tube. POS: [facility]
[2017-11-04] MEDS: cefTRIAXone\\ROCEPHIN 1 GM, Syringe 0.4 ML in Sterile Water 9.6 ML SLOW IVP SCH (14:08)
[2017-11-04] MEDS: HYDROcodone/Acetaminophen 5/325 mg Tablet PO PRN (16:53)
[2017-11-04] MEDS: Atorvastatin Calcium 20 MG TAB PO SCH (21:59)
[2017-11-05 04:42] LABS: #Eosinphils 0.1 thou/uL (0.0-0.7); #Lymphocytes 1.2 thou/uL (1.20-3.40); #Monocytes 0.8 thou/uL (0.11-0.59); #Neutrophils 14.6 thou/uL (1.40-6.50); %Basophils 0.1 % (0.0-1.0); %Eosinophils 0.7 % (0.0-10.0); %Lymphocytes 6.9 % (21.0-51.0); %Monocytes 4.7 % (0.0-10.0); %Neutrophils 87.6 % (42.0-75.0); Mean Corpuscular HGB CONC 29.7 g/dL (32.0-36.0); Mean Corpuscular Hemoglobin 29.4 pg (27.0-31.0); Mean Platelet Volume 7.2 fL (7.4-10.4); Platelet Count 387 thou/uL (130-400); RBC Distribution Width 14.5 % (11.5-14.5); Red Blood Cell (RBC) Count 4.07 mill/uL (4.70-6.10); White Blood Cell (WBC) Count 16.7 thou/uL (4.8-10.8)
[2017-11-05 05:02] LABS: Anion Gap 15 mmol/L (10-20); BUN (Urea Nitrogen) 25 mg/dL (8.4-25.7); Calc. Creatinine Clearance 71 mL/min (70-130); Calcium 8.5 mg/dL (7.8-10.44); Carbon Dioxide 26 mmol/L (23-31); Chloride 97 mmol/L (98-107); Estimated GFR-MDRD Greater than 90; Glucose 176 mg/dL (83-110); Potassium 5.6 mmol/L (3.5-5.1); Sodium 132 mmol/L (136-145)
[2017-11-05] MEDS: metFORMIN 500 MG TAB PO SCH ×2 (09:15→16:40)
[2017-11-05] MEDS: Insulin Detemir 100 UNITS/ML 15 UNITS in Pre-Filled Syringe 1 EACH SC SCH (09:16)
[2017-11-05] MEDS: Alogliptin 6.25 MG TAB PO SCH (09:16)
[2017-11-05] MEDS: Azelastine 137 MCG/Spray 30 ML NS SCH ×2 (09:16→21:48)
[2017-11-05] MEDS: Allopurinol 300 MG TAB PO SCH (09:16)
[2017-11-05] MEDS: Ezetimibe 10 MG TAB PO SCH (09:16)
[2017-11-05] MEDS: predniSONE 20 MG TAB PO SCH (09:16)
[2017-11-05] MEDS: Loratadine 10 MG TAB PO SCH (09:16)
[2017-11-05] MEDS: Dutasteride 0.5 MG CAP PO SCH (09:16)
--- NOTE | 2017-11-05 14:10 | PRG ---
DATE OF SERVICE: 11/05/2017 SUBJECTIVE: Aside from some residual weakness, he feels better. He is not having any shortness of b reath. PHYSICAL EXAMINATION: VITAL SIGNS: Temperature 98.3, pulse 89, respirations 16, O2 saturation 98% on 2 liters, blood press ure 124/63. HEENT: Unremarkable. NECK: No JVD. LUNGS: Slightly diminished breath sounds at right base, left side clear. CARDIAC: S1 and S2 regular. ABDOMEN: Soft. EXTREMITIES: No edema. LABORATORY DATA: White blood cell count 16.7, hematocrit 40, platelet count 387. Sodium 132, potass ium 5.6, chloride 97, CO2 of 26, BUN 25, creatinine 0.7, glucose 176. ASSESSMENT: 1. Peripneumonic right pleural effusion - now status post chest tube placement. 2. Pneumonia. PLAN: The patient is nearing the point where he can be discharged. I would go ahead and switch him over to oral antibiotics. Main issue now is rehab nature.
[2017-11-05] MEDS: Azithromycin 250 MG TAB PO SCH (15:13)
[2017-11-05] MEDS: Insulin Regular 300 UNITS/3 ML VIAL SC PRN (16:40)
[2017-11-05] MEDS: Atorvastatin Calcium 20 MG TAB PO SCH (21:47)
[2017-11-06 04:30] LABS: #Eosinphils 0.2 thou/uL (0.0-0.7); #Lymphocytes 1.5 thou/uL (1.20-3.40); #Neutrophils 12.5 thou/uL (1.40-6.50); %Basophils 0.1 % (0.0-1.0); %Eosinophils 1.2 % (0.0-10.0); %Lymphocytes 9.6 % (21.0-51.0); %Monocytes 6.6 % (0.0-10.0); %Neutrophils 82.4 % (42.0-75.0); Hemoglobin 12.4 g/dL (14.0-18.0); Mean Corpuscular HGB CONC 31.5 g/dL (32.0-36.0); Mean Corpuscular Hemoglobin 30.3 pg (27.0-31.0); Mean Corpuscular Volume 96.3 fl (80.0-94.0); Mean Platelet Volume 7.2 fL (7.4-10.4); Platelet Count 412 thou/uL (130-400); RBC Distribution Width 14.5 % (11.5-14.5); Red Blood Cell (RBC) Count 4.08 mill/uL (4.70-6.10); White Blood Cell (WBC) Count 15.2 thou/uL (4.8-10.8)
[2017-11-06 04:52] LABS: Anion Gap 9 mmol/L (10-20); BUN (Urea Nitrogen) 25 mg/dL (8.4-25.7); Calc. Creatinine Clearance 68 mL/min (70-130); Calcium 8.9 mg/dL (7.8-10.44); Carbon Dioxide 33 mmol/L (23-31); Chloride 97 mmol/L (98-107); Estimated GFR-MDRD Greater than 90; Glucose 111 mg/dL (83-110); Potassium 4.3 mmol/L (3.5-5.1); Sodium 135 mmol/L (136-145)
[2017-11-06] MEDS: HYDROcodone/Acetaminophen 5/325 mg Tablet PO PRN (05:18)
--- NOTE | 2017-11-06 08:33 | RAD ---
PORTABLE CHEST ONE VIEW: 11/06/2017 4:54 a.m. HISTORY: Pneumonia. COMPARISON: 11/04/2017 FINDINGS: There has been interval removal of the right-sided chest tube. Consolidative change in the right shai g base with accompanying right effusion is seen. No pneumothoraces are identified. There are change s of median sternotomy. The heart size is normal. A left-sided pacemaker device remains in place. The left lung is unremarkable. POS: [facility]
[2017-11-06] MEDS: metFORMIN 500 MG TAB PO SCH ×2 (08:35→15:38)
[2017-11-06] MEDS: Alogliptin 6.25 MG TAB PO SCH (08:37)
[2017-11-06] MEDS: predniSONE 20 MG TAB PO SCH (08:37)
[2017-11-06] MEDS: Loratadine 10 MG TAB PO SCH (08:37)
[2017-11-06] MEDS: Azelastine 137 MCG/Spray 30 ML NS SCH ×2 (08:37→21:09)
[2017-11-06] MEDS: Allopurinol 300 MG TAB PO SCH (08:37)
[2017-11-06] MEDS: Cefdinir 300 MG CAP PO SCH (08:37)
[2017-11-06] MEDS: Ezetimibe 10 MG TAB PO SCH (08:38)
[2017-11-06] MEDS: Dutasteride 0.5 MG CAP PO SCH (08:39)
[2017-11-06] MEDS: Insulin Detemir 100 UNITS/ML 15 UNITS in Pre-Filled Syringe 1 EACH SC SCH (08:43)
[2017-11-06 09:18] LABS: Bilirubin Negative (Negative); Blood, Urine Negative (Negative); Clarity CLEAR (Clear); Glucose, Urine (Dipstick) 250 mg/dL (Negative); Leukocyte Negative (Negative); Nitrite Negative (Negative); Protein, Urine (Dipstick) Negative (Neg-Trace); Specific Gravity, Urine 1.017 (1.002-1.036); Urobilinogen 0.2 mg/dL (0.2-1.0); pH, Urine 5.5 (5.0-9.0)
[2017-11-06 09:22] LABS: Bacteria/HPF None Seen HPF (None Seen); Hyaline Casts/LPF 0-3 HYALINE CAST LPF (0-3 Hyaline); Pathc Cast-AUWi Flag 0.13 (0-2.49); RBC/HPF 0-3 HPF (0-3); Squamous Epithelial None Seen HPF (0-3); WBC/HPF 0-3 HPF (0-3)
--- NOTE | 2017-11-06 13:44 | PRG ---
DATE OF SERVICE: 11/06/2017 SUBJECTIVE: He felt better and has no complaints. PHYSICAL EXAMINATION: VITAL SIGNS: Temperature 97.5, pulse 74, respiration 16, and blood pressure 130/65. HEENT: Unremarkable. NECK: No JVD. CHEST: Diminished breath sounds right base, left side clear. CARDIAC: S1 and S2, regular. ABDOMEN: Soft. EXTREMITIES: No edema. LABORATORY DATA: White blood cell count 15, hematocrit 39, and platelet count 412. Sodium 135, pota ssium 4.3, BUN 25, creatinine 0.7, glucose 111. Chest x-ray still shows some right lower lobe findin gs, which are not unexpected. ASSESSMENT: 1. Peripneumonic right pleural effusion, stable post-chest tube placement. 2. Pneumonia. PLAN: I think he can be discharged, do not have any further recommendations.
[2017-11-06] MEDS: Azithromycin 250 MG TAB PO SCH (15:38)
[2017-11-06] MEDS: Atorvastatin Calcium 20 MG TAB PO SCH (21:09)
--- NOTE | 2017-11-07 07:17 | PRG ---
DATE OF SERVICE: 11/06/2017 HISTORY OF PRESENT ILLNESS: The patient has successfully had a chest tube removed. Chest x-ray remained stable. The patient has remained on oxygen during ambulation and in bed. He has been working with speech therapy with successful dietary intake with mechanical soft, thin liquid diet. PT has recommended SNF placement; however, the patient desires to go home. He has a walker currently, lives with spouse, has one daughter within short living distance here locally, has carpeted floor so he can walk at home. has a bench in shower he can sit on. He has ambulated 300 feet with prior PT session; however, did not ambulate outside room today. The patient has no acute complaints other than some mild dysuria; however, verbalized understanding regarding clean UA. PHYSICAL EXAMINATION: VITAL SIGNS: Temperature of 97.5, pulse of 74, respiratory rate of 16, oxygen saturation 99% on 2 liters nasal cannula, blood pressure of 138/65. GENERAL: The patient is alert and oriented. HEENT: Head is normocephalic, atraumatic. Extraocular movements are intact. Sclerae are clear. Oral mucosa is moist. Poor dentition present. NECK: Supple. HEART: Has regular rate and rhythm at time of exam. No murmurs auscultated. LUNGS: Clear to auscultation bilaterally. No rubs or wheezes. Bandage intact on his chest tube insertion in right chest wall. ABDOMEN: Soft, nontender. EXTREMITIES: Lower extremities without cyanosis or edema. NEUROLOGIC: The patient is alert and oriented x1, is hard of hearing. Speech is normal. ASSESSMENT AND PLAN: 1. Pneumonic right pleural effusion and pneumonia likely resolved following chest tube insertion and now removal, appears stable. Instructed nursing staff to wean and obtained oxygen saturations on room air. For disposition, planning , consult and case management for PT and Speech Therapy on an outpatient home health basis. If the patient can successfully wean from oxygen and would likely be stable for discharge tomorrow, has been transitioned to oral antibiotics, currently on azithromycin and Omnicef. 2. Diabetes, type 2. The patient is stable on metformin. Blood glucoses remained stable on 20 mg of prednisone daily. The patient has received 40 units daily of sliding scale insulin. DISPOSITION: Home, likely tomorrow if saftey needs can be met safely with followup with outpatient home health, PT, and Speech. YONAS
[2017-11-07] MEDS: Azelastine 137 MCG/Spray 30 ML NS SCH ×2 (07:49→22:01)
[2017-11-07] MEDS: Alogliptin 6.25 MG TAB PO SCH (07:50)
[2017-11-07] MEDS: Dutasteride 0.5 MG CAP PO SCH (07:50)
[2017-11-07] MEDS: Cefdinir 300 MG CAP PO SCH (07:51)
[2017-11-07] MEDS: Ezetimibe 10 MG TAB PO SCH (07:51)
[2017-11-07] MEDS: metFORMIN 500 MG TAB PO SCH ×2 (07:51→16:45)
[2017-11-07] MEDS: Loratadine 10 MG TAB PO SCH (07:52)
[2017-11-07] MEDS: predniSONE 20 MG TAB PO SCH (07:52)
[2017-11-07] MEDS: Insulin Detemir 100 UNITS/ML 15 UNITS in Pre-Filled Syringe 1 EACH SC SCH (07:53)
[2017-11-07] MEDS: Allopurinol 300 MG TAB PO SCH (07:53)
[2017-11-07] MEDS: Azithromycin 250 MG TAB PO SCH (13:09)
--- NOTE | 2017-11-07 16:59 | PRG ---
DATE OF SERVICE: 11/07/2017 HISTORY OF PRESENT ILLNESS: The patient ambulated in the room with physical therapy yesterday and wa s able to do so remained off oxygen throughout the day, respiratory therapy placed patient back on ox ygen overnight; however, the patient was able to ambulate without assistance to a restroom without ox ygen and had been utilizing walker while ambulating. Patient desires to return home; however, when d ischarge orders were placed for home health, PT and Speech to follow. The patient's family members r efused to assume responsibility for patient's desire a SNF placement as able. Consulting case manage ment for possible SNF placement as this is desired disposition per physical therapy notes, although yamil wilder has ambulated 300 feet given the . No further evaluation, will likely be until Wednesday. I will have continuation of a discussion with family members to the comfort level for poss ible discharge earlier. Patient is not able to meet qualifications for SNF, would discharge the diana ent home. The patient remains stable from a respiratory standpoint and Pulmonology has signed off. PHYSICAL EXAMINATION: VITAL SIGNS: Temperature of 98.0, pulse of 98, respiratory rate 16, oxygen saturation 95% on room ai r, blood pressure of 109/60. GENERAL: The patient is alert and oriented, no acute distress. HEENT: Normocephalic, atraumatic. Extraocular movements intact. Sclerae are clear. HEART: Regular rate and rhythm. No murmurs auscultated. LUNGS: Clear to auscultation bilaterally. No rales, rubs, or wheezes. ABDOMEN: Soft, nontender. EXTREMITIES: Without cyanosis or edema. NEUROLOGIC: The patient is alert and oriented x3. Hard of hearing. No focal deficits. Speech is n ormal. ASSESSMENT AND PLAN: Pneumonia with right pleural effusion, diabetes type 2. Deconditioning and dys phagia. Continue speech therapy, physical therapy while inpatient. Discharge planning as above CONSULTING CASE MANAGEMENT: Continuing sliding scale insulin and metformin for type 2 diabetes. Th e patient's chest tube has been discontinued and patient has been stable on oral antibiotics for over 24 hours now on azithromycin and Omnicef and will likely be discontinuing azithromycin, continuation of Omnicef through a full 7-10 day course. Awaiting SNF approval if possible, otherwise discharge h ome with home health.
[2017-11-07] MEDS: Atorvastatin Calcium 20 MG TAB PO SCH (22:00)
[2017-11-08] MEDS: Insulin Detemir 100 UNITS/ML 15 UNITS in Pre-Filled Syringe 1 EACH SC SCH (08:13)
[2017-11-08] MEDS: predniSONE 20 MG TAB PO SCH (08:14)
[2017-11-08] MEDS: metFORMIN 500 MG TAB PO SCH ×2 (08:14→17:02)
[2017-11-08] MEDS: Alogliptin 6.25 MG TAB PO SCH (08:14)
[2017-11-08] MEDS: Allopurinol 300 MG TAB PO SCH (08:14)
[2017-11-08] MEDS: Cefdinir 300 MG CAP PO SCH (08:14)
[2017-11-08] MEDS: Dutasteride 0.5 MG CAP PO SCH (08:15)
[2017-11-08] MEDS: Azelastine 137 MCG/Spray 30 ML NS SCH ×2 (08:15→20:59)
[2017-11-08] MEDS: Ezetimibe 10 MG TAB PO SCH (08:15)
[2017-11-08] MEDS: Loratadine 10 MG TAB PO SCH (08:15)
--- NOTE | 2017-11-08 14:00 | PRG ---
DATE OF SERVICE: 11/08/2017 HISTORY OF PRESENT ILLNESS: The patient is continuing to ambulate without assistance to restroom as well, has note of case management regarding SNF versus home health placement. The patient still yeimi res to go home, but is desiring to discuss with the family his option of SNF, currently looking at [facility]. The patient has done well prior stay at [facility] previously. No new interva l changes reported. PHYSICAL EXAMINATION: VITAL SIGNS: Temperature of 97.8, pulse of 98, respiratory rate 16, oxygen saturation 97% on room ai r, blood pressure 164/66. Blood glucoses ranged 162-202 in last 12 hours. GENERAL: The patient is alert and oriented, no acute distress. HEENT: Normocephalic, atraumatic. Extraocular movements are intact. Sclerae are white. Oral mucos a is moist. NECK: Supple. Some temporal wasting is noted. HEART: Regular rate and rhythm. No murmurs are auscultated at the time of exam. LUNGS: Clear to auscultation bilaterally. ABDOMEN: Soft, nontender, positive bowel sounds throughout. EXTREMITIES: Lower extremities without cyanosis or edema. NEUROLOGIC: The patient is alert and oriented x3, no focal deficits. Speech is normal. The patient is hard of hearing. ASSESSMENT AND PLAN: Deconditioning, dysphagia, pneumonia, pleural effusion. The patient currently is stable on room air and on oral antibiotics. DISPOSITION: Awaiting SNF versus home health placement, which family will decide in the next 24 hour s. Likely discharge tomorrow with home health with discussions with the patient today.
[2017-11-08] MEDS: Azithromycin 250 MG TAB PO SCH (14:06)
[2017-11-08] MEDS: Atorvastatin Calcium 20 MG TAB PO SCH (20:59)
[2017-11-08] MEDS ORDERED: Nystatin Cream 15 GM TUBE TOP SCH (21:00)
[2017-11-08] MEDS: Nystatin Cream 30 GM TUBE TOP SCH (22:13)
[2017-11-09 05:07] LABS: #Eosinphils 0.1 thou/uL (0.0-0.7); #Lymphocytes 1.5 thou/uL (1.20-3.40); #Monocytes 0.9 thou/uL (0.11-0.59); #Neutrophils 13.7 thou/uL (1.40-6.50); %Eosinophils 0.6 % (0.0-10.0); %Monocytes 5.3 % (0.0-10.0); %Neutrophils 85.1 % (42.0-75.0); Hemoglobin 11.1 g/dL (14.0-18.0); Mean Corpuscular HGB CONC 31.2 g/dL (32.0-36.0); Mean Corpuscular Hemoglobin 29.8 pg (27.0-31.0); Mean Corpuscular Volume 95.3 fl (80.0-94.0); Mean Platelet Volume 7.6 fL (7.4-10.4); Platelet Count 355 thou/uL (130-400); RBC Distribution Width 14.5 % (11.5-14.5); Red Blood Cell (RBC) Count 3.73 mill/uL (4.70-6.10); White Blood Cell (WBC) Count 16.1 thou/uL (4.8-10.8)
[2017-11-09 05:20] LABS: Anion Gap 10 mmol/L (10-20); BUN (Urea Nitrogen) 38 mg/dL (8.4-25.7); Calc. Creatinine Clearance 61 mL/min (70-130); Calcium 8.3 mg/dL (7.8-10.44); Carbon Dioxide 31 mmol/L (23-31); Chloride 99 mmol/L (98-107); Estimated GFR-MDRD 84; Glucose 144 mg/dL (83-110); Potassium 3.9 mmol/L (3.5-5.1); Sodium 136 mmol/L (136-145)
[2017-11-09 08:26] VITALS: TEMP 97.2
[2017-11-09] MEDS: Insulin Detemir 100 UNITS/ML 15 UNITS in Pre-Filled Syringe 1 EACH SC SCH (09:11)
[2017-11-09] MEDS: Loratadine 10 MG TAB PO SCH (09:12)
[2017-11-09] MEDS: metFORMIN 500 MG TAB PO SCH (09:12)
[2017-11-09] MEDS: Alogliptin 6.25 MG TAB PO SCH (09:12)
[2017-11-09] MEDS: predniSONE 20 MG TAB PO SCH (09:13)
[2017-11-09] MEDS: Ezetimibe 10 MG TAB PO SCH (09:13)
[2017-11-09] MEDS: Dutasteride 0.5 MG CAP PO SCH (09:13)
[2017-11-09] MEDS: Cefdinir 300 MG CAP PO SCH (09:13)
[2017-11-09] MEDS: Allopurinol 300 MG TAB PO SCH (09:13)
[2017-11-09] MEDS: Azelastine 137 MCG/Spray 30 ML NS SCH (09:14)
[2017-11-09] MEDS: Nystatin Cream 30 GM TUBE TOP SCH (09:14)
[2017-11-09 11:23] VITALS: BP 93/55
--- NOTE | 2017-11-09 12:54 | PRG ---
DATE OF SERVICE: 11/09/2017 SUBJECTIVE: Mr. Fernández is doing well. He has been approved for transfer to [place]. He is feeling good. PHYSICAL EXAMINATION: VITAL SIGNS: Temperature is 97.2, BP 102/43. LUNGS: Reveal bilateral breath sounds. HEART: Reveals no murmur, atrial fibrillation is noted. IMPRESSION: Status post pneumonic process with empyema requiring chest tube intervention, now stable . PLAN: Discharge to [place] today. He will remain on antibiotics with rehabilitation at [place].
[2017-11-09] MEDS: Azithromycin 250 MG TAB PO SCH (14:25)
--- NOTE | 2017-11-09 17:24 | PRG ---
DATE OF SERVICE: 11/09/2017. SUBJECTIVE: Leon Fernández has been stable. He is afebrile. His chest tubes out. Reviewed his cour se over the last week, reviewed his radiographs. OBJECTIVE: VITAL SIGNS: He is afebrile, heart rate in the 70s, respiratory rate 16, oximetry 95, blood pressure 93/55. LUNGS: Clear. HEART: Regular rhythm. ABDOMEN: Soft. He is scheduled to go to residential and then home. I have asked him to follow up with us in 4 t o 6 weeks for a chest radiograph. Inflammatory changes at the right base were still present when the chest tube was removed on the . It will probably be 4 to 6 weeks before his radiograph has reached a new baseline. My index of suspi cion for endobronchial disease causing this problem is extremely low at this point. I enjoyed my vis it with him and I look forward to seeing him again in 4 to 6 weeks. I have given them my office numb er and asked his to make an appointment.
--- NOTE | 2017-12-09 11:02 | PQF ---
MALENA WYNN RICHARD A MD [id number] -[id number]- [id number] CLINICAL DOCUMENTATION CLARIFICATION FORM: POST DISCHARGE Please exercise your independent, professional judgment in responding to the clarification form. Clinical indicators are provided on the bottom of this form for your review. Thank you. Please check appropriate box(s): [ ] Aspiration Pneumonia [ ] Aspiration Bronchitis [ ] Empirically treating Gram Negative Pneumonia [ ] Empirically treating Anaerobic Pneumonia [ ] Pneumonia secondary to (specify organism / underlying disease) [ ] Simple Pneumonia (community acquired - nosocomial) [ ] Bronchopneumonia [ ] Pneumonia of unknown etiology [ ] Other diagnosis [ ] Unable to determine In addition, please specify: Present on Admission (POA): [ ] Yes [ ] No [ ] Unable to determine PN 10/31/17- "Right-sided pneumonia, possible aspiration component. PN 11/08/17- "dysphagia, pneumonia, pleural effusion." LAB; WBC- 10/27/17-16.0; 10/28- 21.3; 10/29- 22.1; 10/30- 19.5 11/05- 16.7 CLINICAL INDICATORS - SIGNS / SYMPTOMS / LABS Elevated WBC Decreased LOC or altered mental status Dysphagia / + swallow study Pleural effusion SOB, Hypoxia, O2 sats 85% on RA Pulmonary infiltrate / CXR results RISK FACTORS Deconditioned Dysphagia / GERD / Hiatal hernia Increasing pleural effusion TREATMENTS: Antibiotics/antifungals; IV Rocephin, vancomycin, azithromycin, Omnicef O2 therapy / bronchodilators Chest tube x 2 Pulmonary consult IV fluids Serial CXRs Swallow study/speech therapy Mechanical soft, thin liquid diet (This form is maintained as a part of the permanent medical record) 2014 [employer]. All Rights Reserved [email or web address] [phone] YONAS
== END 2017-11-09 15:49 | DRG 177 ==
LOC: ERS 11:12 → T4-A 14:14
PROVIDERS: ADMIT Family Medicine; ATTEND Family Medicine
PROC: 0W9930Z Drainage of Right Pleural Cavity with Drainage Device, Percutaneous Approach (ICD-10-PCS; 2017-10-31)
PROC: 0W9900Z Drainage of Right Pleural Cavity with Drainage Device, Open Approach (ICD-10-PCS; principal; 2017-11-02)
DX: J86.9 Pyothorax without fistula (principal); G93.40 Encephalopathy, unspecified; J18.9 Pneumonia, unspecified organism; I48.2 Chronic atrial fibrillation; J91.8 Pleural effusion in other conditions classified elsewhere; R13.10 Dysphagia, unspecified; E11.9 Type 2 diabetes mellitus without complications; Z95.1 Presence of aortocoronary bypass graft; R09.02 Hypoxemia; T38.0X5A Adverse effect of glucocorticoids and synthetic analogues, initial encounter; I25.10 Atherosclerotic heart disease of native coronary artery without angina pectoris; Z95.0 Presence of cardiac pacemaker; Z79.01 Long term (current) use of anticoagulants; I10 Essential (primary) hypertension
CPT/HCPCS: 36415; 36416; 51701; 70450; 71010; 71020; 74230; 80048; 80053; 81001; 81003; 82553; 82945; 83605; 83615; 83690; 83986; 84157; 84484; 85007; 85025; 85027; 85060; 87040; 87070; 87205; 88112; 88305; 89051; 93005; 94640; 96361; 96365; 96375; A4216; G8978-GP-CJ; G8979-GP-CI; G8979-GP-CJ; G8980-GP-CJ; G8996-GN-CH; G8996-GN-CI; G8996-GN-CL; G8997-GN-CH; G8997-GN-CI; G8997-GN-CK; J0456; J0696; J1815; J1885; J2001; J2704; J2930; J3010; J3370; J7050; J7506; J7620

== ENCOUNTER 2018-03-29 19:01 | Inpatient (IN) | payer MEDICARE, OTHER ==
[2018-03-29 20:53] LABS: #Eosinphils 0.1 thou/uL (0.0-0.7); #Lymphocytes 1.6 thou/uL (1.20-3.40); #Monocytes 0.9 thou/uL (0.11-0.59); #Neutrophils 5.9 thou/uL (1.40-6.50); %Basophils 0.6 % (0.0-1.0); %Eosinophils 1.7 % (0.0-10.0); %Lymphocytes 18.8 % (21.0-51.0); %Monocytes 10.7 % (0.0-10.0); %Neutrophils 68.3 % (42.0-75.0); Hemoglobin 10.9 g/dL (14.0-18.0); Mean Corpuscular HGB CONC 32.3 g/dL (32.0-36.0); Mean Corpuscular Hemoglobin 30.6 pg (27.0-31.0); Platelet Count 148 thou/uL (130-400); RBC Distribution Width 13.9 % (11.5-14.5); Red Blood Cell (RBC) Count 3.56 mill/uL (4.70-6.10); White Blood Cell (WBC) Count 8.7 thou/uL (4.8-10.8)
[2018-03-29 20:59] LABS: PTT 30.9 SEC (22.9-36.1); Prothrombin Time 13.6 SEC (12.0-14.7)
[2018-03-29 21:10] LABS: Anion Gap 13 mmol/L (10-20); BUN (Urea Nitrogen) 34 mg/dL (8.4-25.7); Calc. Creatinine Clearance 0 mL/min (70-130); Calcium 9.1 mg/dL (7.8-10.44); Carbon Dioxide 30 mmol/L (23-31); Chloride 101 mmol/L (98-107); Estimated GFR-MDRD 55; Glucose 267 mg/dL (83-110); Potassium 4.9 mmol/L (3.5-5.1); Sodium 139 mmol/L (136-145)
[2018-03-29] MEDS: Atorvastatin Calcium 20 MG TAB PO SCH (22:15)
[2018-03-29] MEDS: Fluticasone Propionate Nasal Spray 16 gm Bottle NASAL SCH (22:15)
[2018-03-29] MEDS: Azelastine 137 MCG/Spray 30 ML NS SCH (22:16)
[2018-03-29 22:39] VITALS: BMI 17.6
--- NOTE | 2018-03-30 00:25 | CON ---
DATE OF CONSULTATION: 03/29/2018 HISTORY OF PRESENT ILLNESS: This is an 88-year-old white male being admitted with gross hematuria, w hich has been going on for over a week. His hemoglobin this morning was over 11, but he has not been able to get clear and he had a distended bladder today, although he did not have many clots at all. An office cystoscopy was done that showed just a clot adherent to the posterior wall and floor of th e bladder, and probably what is a bladder tumor underneath it. He is coming now to be admitted. Cat heter is in place, hydrated, n.p.o. after midnight for cystoscopy, TURBT and retrogrades tomorrow [facility]. His regular primary care is Dr. Pedro. I talked with him. He felt that he was stable enough for an anesthetic. We will type and screen him. We will check some lab work on him again in the [facility]. He has recently been in the hospital with, I think it was, pneumonia and actually I think he h ad a tube thoracotomy at that point. So, he has been through some near recent health issues and seem s to have been done okay with those. That was I believe back in December. PAST MEDICAL HISTORY: He has a history of AFib, coronary artery disease. 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 He has had a pacemaker placed. He is diabetic. He is hypertensive. He has lower urinary tract symptoms. ALLERGIES: He has allergies to CODEINE and SULFA. MEDICATIONS: His medication list has been provided to the nursing staff here and includes Avodart. He was taking baby aspirin, but has not taken them for a few days now. He was on Eliquis in the past or a blood thinner in the past, but he has not been on that for quite a while because of his bleedin g. SOCIAL HISTORY: He does not smoke. He does not drink. PHYSICAL EXAMINATION: GENERAL: He is a thin elderly male in no acute distress. MUSCULOSKELETAL: His flanks are nontender. ABDOMEN: Soft, flat, nontender. I did place a catheter today. His bladder was distended when he wa s in the office. The urine is still bloody, but appears to be draining well and his bladder is no lo nger distended. GENITOURINARY: He is circumcised without lesion. The testicles are descended without mass or tender ness. EXTREMITIES: Negative. IMPRESSION: 1. Gross hematuria. 2. Poor emptying of the bladder, which is now managed with a Rai catheter. 3. Probable bladder tumor. PLAN: Plan at this time is to get him admitted, start IV fluids, keep the catheter to drainage. We will consult Dr. Pedro to see him in the morning from a primary care standpoint. Plan on OR with an anesthetic tomorrow, probably shortly after lunch time. This was all discussed with him today. We w ill get a type and screen on him also.
[2018-03-30] MEDS: D5 1/2 NS w/10 mEq KCl 1,000 ML/1,000 ML BAG IV SCH ×3 (01:06→18:39)
--- NOTE | 2018-03-30 08:00 | CON ---
DATE OF CONSULTATION: 03/30/2018 HISTORY OF PRESENT ILLNESS: Mr. Fernández was admitted last night. He will be undergoing cystoscopy fo r recurrent urinary bleeding, probably has some type of bladder lesion, possibly bladder cancer. Dr. Collier was discussed this with me. At this time Mr. Fernández reports no medical complaints. He is fe eling well. It is noted he has most recently been hospitalized in October 2017 through early part o 2017 due to the pneumonia which required extensive treatment as well as placement of a right chest. The patient had extended recovery in rehab. He has been able to be discharged home and has been do ing well at home for the last 3 months. Otherwise, no other medical complaints are noted. He does h ave a medical history of type 2 diabetes mellitus, atherosclerotic coronary artery disease, history o f atrial fibrillation. He is not maintained on anticoagulation due to recurrent urinary bleeding. Deejay abdi also has a history of hypertension. Otherwise, no other medical issues are otherwise noted. ALLERGIES: He is allergic to CODEINE and SULFA. CURRENT MEDICATIONS: Noted in the chart. PHYSICAL EXAMINATION: VITAL SIGNS: His temperature 97.2, pulse 103 and regular, O2 sats 99%, respirations 18, BP 120/96. GENERAL: He is alert, active, in no apparent distress. LUNGS: Reveal bilateral breath sounds. HEART: Reveals an irregular regular rhythm without murmur, gallops or rubs. ABDOMEN: Soft, nontender, bowel sounds are present and active. No hepatosplenomegaly is noted. EXTREMITIES: No clubbing, edema or cyanosis otherwise noted. LABORATORY: His hemoglobin is 10.9, hematocrit 33.8, white blood count 8.7. Chemistry: Sodium 139, potassium 4.9, chloride 101, CO2 30, BUN 34, creatinine 1.24. IMPRESSION: 1. Bladder lesion. 2. History of atrial fibrillation. 3. History of atherosclerotic coronary artery disease. PLAN: Atherosclerotic coronary artery disease and atrial fibrillation are well controlled. He is no t currently maintained on anticoagulants. This has been approved by Cardiology due to recurrent urin lopez bleeding. He is safe in my opinion to undergo anesthesia for his bladder procedure.
[2018-03-30] MEDS: INVOKANA 100 MG PO SCH (08:49)
[2018-03-30] MEDS: Azelastine 137 MCG/Spray 30 ML NS SCH ×2 (09:40→20:50)
[2018-03-30] MEDS: Fluticasone Propionate Nasal Spray 16 gm Bottle NASAL SCH ×2 (09:47→20:49)
[2018-03-30] MEDS: Loratadine 10 MG TAB PO SCH (09:47)
[2018-03-30] MEDS: Alogliptin 25 MG TAB PO SCH (10:01)
[2018-03-30] MEDS: metFORMIN 500 MG TAB PO SCH ×2 (10:01→19:15)
[2018-03-30] MEDS: Dutasteride 0.5 MG CAP PO SCH (10:01)
[2018-03-30] MEDS ORDERED: PHENYLEPHRINE-NS 100 MCG/ML 10 ML SYRINGE ONE (11:53)
[2018-03-30] MEDS ORDERED: ePHEDrine/0.9% NaCl/PF SYRINGE 50 mg/10 ml ONE (11:53)
[2018-03-30] MEDS ORDERED: PROPOFOL 200 MG/20 ML VIAL ONE (11:53)
[2018-03-30] MEDS ORDERED: Lidocaine 1% PF 5 ML VIAL ONE (11:53)
[2018-03-30] MEDS ORDERED: Succinylcholine Chloride 20 MG/ML 10 ml SYRINGE FS ONE (11:53)
[2018-03-30] MEDS ORDERED: Fentanyl 100 MCG/2 ML VIAL ONE (14:04)
[2018-03-30] MEDS ORDERED: cefTRIAXone\\ROCEPHIN 2 GM in Sodium Chloride 0.9% 100 ML IVPB SCH (14:15)
[2018-03-30] MEDS ORDERED: Iothalamate Meglumine 60% 50 ML VIAL FS ONE (14:16)
[2018-03-30] MEDS ORDERED: cefTRIAXone\\ROCEPHIN 1 GM VIAL ONE (14:29)
[2018-03-30] MEDS ORDERED: Sodium Chloride 0.9% 0 ML ONE (14:31)
[2018-03-30] MEDS ORDERED: Digoxin 0.5 MG/2 ML AMP SLOW IVP SCH (17:00)
[2018-03-30 17:05] LABS: Band 1 % (5-11); Hemoglobin 11.7 g/dL (14.0-18.0); Lymphocytes 23 % (21-51); MDiff Complete? YES; Mean Corpuscular HGB CONC 32.3 g/dL (32.0-36.0); Mean Corpuscular Hemoglobin 30.6 pg (27.0-31.0); Mean Corpuscular Volume 94.5 fl (80.0-94.0); Mean Platelet Volume 12.2 fL (7.4-10.4); Monocytes 4 % (0-10); Neutrophil 72 % (42-75); PLT Morphology Comment PLT clumps seen-ADEQ; RBC Distribution Width 13.7 % (11.5-14.5); Red Blood Cell (RBC) Count 3.82 mill/uL (4.70-6.10); White Blood Cell (WBC) Count 5.4 thou/uL (4.8-10.8)
--- NOTE | 2018-03-30 17:11 | RAD ---
BILATERAL RETROGRADE UROGRAMS: 03/30/2018 HISTORY: Cysto. COMPARISON: 11/11/2011 FINDINGS: There is evidence of an abdominal bi-iliac endograft in place. Bilateral retrograde urograms were performed by Dr. Collier. There is prominent tortuosity of the ure ters bilaterally. There is no hydronephrosis or definite persistent filling defect seen. There is c aliber change within the mid right ureter, at the level of the upper sacrum, but this may be related to an area of peristalsis. Correlation with intraoperative findings is recommended. POS: [facility]
[2018-03-30] MEDS ORDERED: traMADol HCl 50 MG TAB PO PRN (18:08)
--- NOTE | 2018-03-30 20:36 | EKG ---
Test Reason : PREOP Blood Pressure : / mmHG Vent. Rate : 093 BPM Atrial Rate : 098 BPM P-R Int : 000 ms QRS Dur : 152 ms QT Int : 388 ms P-R-T Axes : 000 075 -48 degrees QTc Int : 482 ms Electronic atrial pacemaker Right bundle branch block Abnormal ECG When compared with ECG of 27-OCT-2017 11:42, Electronic atrial pacemaker has replaced Electronic ventricular pacemaker Confirmed by RENÉE WEISS, SJavier ([id number]) on 03/30/2018 8:36:21 PM Referred By: SACHA Confirmed By:DR. Izabella CHINCHILLA MD
[2018-03-30] MEDS: Atorvastatin Calcium 20 MG TAB PO SCH (20:48)
--- NOTE | 2018-03-30 21:34 | CON ---
DATE OF CONSULTATION: 03/30/2018 REASON FOR CONSULTATION: Atrial arrhythmias, postoperative. HISTORY OF PRESENT ILLNESS: Mr. Leon Fernández is a very pleasant 88-year-old gentleman, a patient o f Dr. Jonathan Ignacio. The patient underwent cystoscopy today. In the postoperative period, he noted to have some increasin g heart rates some of which appear to be paced. The patient's waking up now and feels fine, not have any chest pain or pressure. PAST MEDICAL HISTORY: 1. The patient has a history of coronary artery bypass grafting. 2. History of pacemaker insertion. 3. History of apparently atrial arrhythmias. He is on Eliquis or had been in the outpatient setting . 4. History of gross hematuria. MEDICATIONS: 1. He previously was on Eliquis, but was taken off that. 2. Ramipril. 3. Invokana. 4. Metformin. 5. Atorvastatin. ALLERGIES: CODEINE and SULFA. REVIEW OF SYSTEMS: Not obtainable currently. PHYSICAL EXAMINATION: GENERAL: Currently, he is very sleepy in the postoperative period. VITAL SIGNS: Blood pressure now is 130 systolic. Previously had been in the 90s. NECK: Neck veins are normal. Carotid normal upstrokes. LUNGS: Clear. CARDIAC: Currently, it is regular, it is paced 2-3/6 apical and systolic murmur with mitral regurgit ation. ABDOMEN: Soft, nontender. EXTREMITIES: Warm and dry. No clubbing or cyanosis. There is mild edema. PERTINENT LABORATORY AND X-RAY FINDINGS: Hemoglobin is 11.7, creatinine is 1.24. Potassium is 4.9. ASSESSMENT: 1. Hematuria. 2. Previous coronary artery bypass grafting. 3. Mitral regurgitation. 4. What appears to be atrial fibrillation. 5. History of atrial flutter in the past. 6. The patient did have bypass surgery x4 in [address] Toribio. PLAN: 1. A single dose of digoxin was given. 2. We will interrogate pacemaker to see whether need to be programmed to VVI status or whether he tr cruz is paroxysmal in terms of atrial fibrillation.
[2018-03-31] MEDS: D5 1/2 NS w/10 mEq KCl 1,000 ML/1,000 ML BAG IV SCH ×2 (03:05→13:50)
--- NOTE | 2018-03-31 04:58 | OP ---
DATE OF PROCEDURE: 03/30/2018 PREOPERATIVE DIAGNOSES: Hematuria and bladder lesion. POSTOPERATIVE DIAGNOSES: Hematuria and bladder lesion. PROCEDURES PERFORMED: Cystoscopy, bilateral retrogrades, bladder biopsies . ANESTHESIA: General. ESTIMATED BLOOD LOSS: Less than 50 mL. DRAINS PLACED: An 18-Macedonian Rai with 15 mL in the balloon. FINDINGS: He had some areas of abnormal mucosa. No obvious tumor, foreign body or stone; however. On the posterior wall, he had some red areas slightly raised and these were biopsied on lateral to th e left ureteral orifice. He had a rough area of mucosa rather flat, but somewhat papillary in appear ance. This was biopsied. Retrograde studies were done that showed tortuous ureters bilaterally, but no persistent filling defects, no evidence of obstruction. He has a moderately enlarged prostate. He has no evidence of stricture disease. He has heavy trabeculation, numerous cellules and diverticu la. These were inspected to the best of my ability and they were free of tumor, foreign body, or sto ne. OPERATIVE TECHNIQUE: After obtaining written verbal consent from the patient after receiving IV Roce phin, he was taken to the operative suite. He was placed in the supine position on the treatment tab le. PlexiPulses were placed on his lower extremities and turned on. He was given a general anesthet ic and oral intubation. He was then placed in the dorsal lithotomy position. He was sterilely prepp ed and draped. Cystoscopy was performed with a 22-Macedonian sheath. This was well lubricated and passe d under direct vision through the male urethra and into the urinary bladder with aid of a 30-degree l ens and video camera and monitor. The bladder was filled and emptied a number of times. There was s ome clot on the floor and then clot in some of the diverticula and these were all washed out and evac uated. There was no obvious evidence of tumor or mass seen in the bladder. There was no obvious candace dence of stone, foreign body or fistula. We used both the 30 and the 70-degree lens to inspect the b ladder in its entirety including as many the diverticula as we could enter with the sheath. I could not find any area that was actively bleeding. There were some areas of abnormal mucosa. We used a s mall biopsy forceps to biopsy these and then once this was all completed, we went ahead and passed th e gyrus. This was done initially removing instruments and then placing a 24 resectoscope sheath with visual obturator and once this was in, we then brought in a gyrus with a bladder loop. We used this to cauterize the biopsy sites and some of the surrounding mucosa that also appeared abnormal. Once this was completed, there was no evidence of problems or bleeding and the instruments were removed. Rai catheter 18 Macedonian was sterilely inserted. Balloon inflated, was hooked up to gravity and secu red to his right thigh with a cath secure and no significant traction. He was then awakened, extubat ed and taken by stretcher to the recovery room.
[2018-03-31] MEDS: INVOKANA 100 MG PO SCH (08:49)
[2018-03-31] MEDS: Fluticasone Propionate Nasal Spray 16 gm Bottle NASAL SCH (08:50)
[2018-03-31] MEDS: Azelastine 137 MCG/Spray 30 ML NS SCH (08:51)
[2018-03-31] MEDS: Loratadine 10 MG TAB PO SCH (08:52)
[2018-03-31] MEDS: metFORMIN 500 MG TAB PO SCH (08:53)
[2018-03-31] MEDS: Dutasteride 0.5 MG CAP PO SCH (08:53)
[2018-03-31] MEDS: Alogliptin 25 MG TAB PO SCH (08:53)
[2018-03-31] MEDS ORDERED: Nitrofurantoin Monohyd/M-Cryst 100 MG CAP PO SCH (09:00)
--- NOTE | 2018-03-31 11:11 | PRG ---
DATE OF SERVICE: 03/31/2018 SUBJECTIVE: Mr. Fernández is doing well. He has had his procedure done. Since this procedure, he has had some atrial arrhythmia checks issues. This seems to be controlled now. 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 OBJECTIVE: VITAL SIGNS: Temperature 97.9, blood pressure 123/65. LABORATORY DATA: Hemoglobin 11.7, hematocrit 36.1. Blood sugars reveal adequate control. IMPRESSION: 1. Hematuria. 2. History of atherosclerotic coronary artery disease. 3. Type 2 diabetes mellitus. PLAN: From my standpoint, medically stable and will be discharged once Cardiology agrees to this.
[2018-03-31 11:17] VITALS: BP 137/76; TEMP 97.6
== END 2018-03-31 16:55 | disposition home or self-care (01) | DRG 669 ==
LOC: T4-B 19:01
PROVIDERS: ADMIT Urology; ATTEND Urology
PROC: 0TBB8ZX Excision of Bladder, Via Natural or Artificial Opening Endoscopic, Diagnostic (ICD-10-PCS; principal; 2018-03-30)
PROC: BT14ZZZ Fluoroscopy of Kidneys, Ureters and Bladder (ICD-10-PCS; 2018-03-30)
DX: N32.9 Bladder disorder, unspecified (principal); I97.89 Other postprocedural complications and disorders of the circulatory system, not elsewhere classified; N13.8 Other obstructive and reflux uropathy; I25.10 Atherosclerotic heart disease of native coronary artery without angina pectoris; R31.0 Gross hematuria; E11.9 Type 2 diabetes mellitus without complications; I10 Essential (primary) hypertension; Z79.4 Long term (current) use of insulin; Z95.1 Presence of aortocoronary bypass graft; Z95.0 Presence of cardiac pacemaker; Z79.84 Long term (current) use of oral hypoglycemic drugs; I34.0 Nonrheumatic mitral (valve) insufficiency; I48.91 Unspecified atrial fibrillation; Y83.8 Other surgical procedures as the cause of abnormal reaction of the patient, or of later complication, without mention of misadventure at the time of the procedure; Y73.3 Surgical instruments, materials and gastroenterology and urology devices (including sutures) associated with adverse incidents; Y92.230 Patient room in hospital as the place of occurrence of the external cause; Z87.01 Personal history of pneumonia (recurrent)
CPT/HCPCS: 36415; 36416; 74420; 80048; 85025; 85610; 85730; 86850; 86900; 86901; 88305; 93005; 93010; 96374; A4216; J0131; J0696; J1160; J2001; J2704; J3010; J7050; Q9961

== ENCOUNTER 2018-11-30 12:17 | Outpatient (CLI) | payer MEDICARE, OTHER ==
--- NOTE | 2018-11-30 14:14 | RAD ---
PA AND LATERAL VIEWS OF CHEST: Date: 11/30/18 HISTORY: Cough. FINDINGS/IMPRESSION: Comparison made with exam of 11/06/17. Changes of median sternotomy are again seen. Left-sided pacemaker device remains in place. The heart size is normal. There is a mass-like density in the right infrahilar region. A small right pleural ef fusion may be present. The possibility of right lung malignancy cannot be excluded. Further evaluation with CT scan of the c hest is recommended. CODE T. POS: SERENE
== END 2018-11-30 12:18 | disposition home or self-care (01) ==
LOC: SCSRAD 12:17
PROVIDERS: ATTEND Physician Assistant Medical
DX: R05 Cough (principal); J98.4 Other disorders of lung; Z95.0 Presence of cardiac pacemaker
CPT/HCPCS: 71046

== ENCOUNTER 2018-12-03 19:21 | Emergency (ER) | payer OTHER, MEDICARE | END 2018-12-03 20:35 | disposition home or self-care (01) | LOC: ERS 19:21 | DX: M54.5 Low back pain (principal); I48.91 Unspecified atrial fibrillation; I10 Essential (primary) hypertension; I25.10 Atherosclerotic heart disease of native coronary artery without angina pectoris; E03.9 Hypothyroidism, unspecified; E78.5 Hyperlipidemia, unspecified; V43.52XA Car driver injured in collision with other type car in traffic accident, initial encounter | CPT/HCPCS: 99283 ==